=== PATIENT | female | born 1975 | race Caucasian/White ===

== ENCOUNTER 2025-01-04 13:37 | Inpatient (IN) | payer OTHER, SELFPAY ==
[2025-01-04] VITALS (12 sets, daily range): BP systolic 110–159; BP diastolic 69–86; PULSE 80–105; RESP 10–45; TEMP 36.2; O2SAT 99–100; BMI 27.8
--- NOTE | 2025-01-04 13:47 | DI.CT.S_ITS ---
PROCEDURE: CT HEAD/BRAIN WO CON INDICATIONS: splitting headache can't move left side TECHNIQUE: Noncontrast 4.5 mm thick angled axial sections acquired from the foramen magnum to the vertex, with coronal and sagittal reformats. For radiation dose reduction, the following was used: automated exposure control, adjustment of mA and/or kV according to patient size. COMPARISON: None. FINDINGS: Image quality: Diagnostic. CSF spaces: Basal cisterns are patent. No extra-axial fluid collections. Ventricles are normal in size and shape. Brain: Ill-defined hypodense area involving right parietal lobe with poor pérez-white differentiation concerning for acute to subacute infarction in this area. No midline shift. No intracranial masses or hemorrhage. Pérez-white matter interface is normal. Skull and face: Calvarium and visualized facial bones are intact, without suspicious lesions. Sinuses: Visualized sinuses and mastoids are clear. IMPRESSION: Finding is suggestive of acute to subacute infarction involving right parietal lobe. Clinical correlation and follow-up is recommended. No acute intracranial bleed, no midline shift or significant mass effect. Dictated by: Giancarlo Alarcon M.D. on 01/04/2025 at 14:01 Approved by: Giancarlo Alarcon M.D. on 01/04/2025 at 14:02
--- NOTE | 2025-01-04 13:47 | DI.CT.S_ITS ---
PROCEDURE: CT ANGIO HEAD AND NECK INDICATIONS: left side weakness TECHNIQUE: After the administration of intravenous contrast, 1 mm thick sections acquired from the aortic arch through the [place]. 3-dimensional dymirqc-jajxctnhs-nrtfjlhnpi (MIP) and/or volume rendering reformats were acquired of the central intracranial vasculature and neck separately. For radiation dose reduction, the following was used: automated exposure control, adjustment of mA and/or kV according to patient size. COMPARISON: [facility], CT, CT HEAD/BRAIN WO CON, 01/04/2025, 13:51. FINDINGS: Image quality: Diagnostic. BRAIN: See separately dictated CT brain report of 01/04/2025. HEAD CT ANGIOGRAPHY: Anterior circulation: Intracranial internal carotid arteries are normal in size and flow. The flow within the paired anterior cerebral arteries is normal and symmetric. The flow within the middle cerebral arteries is normal and symmetric. The anterior communicating artery is seen. No aneurysms are seen. Posterior circulation: Visualized portions of the vertebral arteries demonstrate normal caliber, and join to form a normal appearing basilar artery. Flow within the posterior cerebral arteries is normal and symmetric. No aneurysms are seen. NECK CT ANGIOGRAPHY: Carotid system: The great vessels demonstrate a conventional anatomy as they arise from the aortic arch. The origins of the common carotid arteries appear patent. The common carotid arteries demonstrate normal caliber and courses. The bifurcation regions are both widely patent. The internal carotid arteries demonstrate normal calibers and courses. Posterior circulation: The origins of the vertebral arteries both appear widely patent. The more superior extracranial portions of both vertebral arteries also demonstrate normal courses and calibers. They join to form a normal appearing basilar artery. Soft tissues: Visualized neck soft tissues demonstrate no suspicious abnormalities. Bones: No suspicious bony lesions. Visualized cervical spine appears normally aligned. IMPRESSION: No significant intracranial arterial abnormality is seen. No significant abnormality is seen within the arteries of the neck. Any quantitative measurements of stenosis were performed using NASCET criteria. Dictated by: Aida Patel M.D. on 01/04/2025 at 14:19 Approved by: Aida Patel M.D. on 01/04/2025 at 14:20
--- NOTE | 2025-01-04 13:49 | EKG_ITS ---
[facility] [address] [place] [address] Test Date: 2025-01-04 Pat Name: Yael Schaffer Department: [facility] Room: Gender: Female Behavior Specialist: FABIEN : 1975 Requested By: Order Number: [id number] Reading MD: Nabeel Ferreira Measurements Intervals [place] Rate: 80 P: 49 LA: 142 QRS: -18 QRSD: 82 T: 142 QT: 482 QTc: 555 Interpretive Statements Critical Test Result: Long QTc Normal sinus rhythm ST & T wave abnormality, consider anterolateral ischemia Prolonged QT Electronically Signed On 01-04-2025 17:42:28 PDT by Nabeel Ferreira
[2025-01-04 14:07] LABS: Add Manual Diff / Slide Review NO; Basophils Absolute Auto 100 /uL (0-100); Eosinophils Absolute Auto 200 /uL (0-450); Eosinophils Percent Auto 1.5 % (2-4); Hematocrit 33.7 % (36-46); Hemoglobin 10.6 g/dL (12.0-16.0); Lymphocytes Absolute Auto 1800 /uL (1100-4500); Lymphocytes Percent Auto 15.5 % (25-40); Mean Corpuscular HGB Conc 31.5 % (30-36); Mean Corpuscular Hemoglobin 20.3 PG (26-34); Mean Corpuscular Volume 64.6 fL (80-100); Monocytes Absolute Auto 700 /uL (0-900); Monocytes Percent Auto 6.1 % (3-14); Neutrophils Absolute Auto 8900 /uL (1500-7000); Neutrophils Percent Auto 75.9 % (50-75); Platelet Count 359 X10^3/uL (150-400); Red Blood Cell Count 5.22 X10^6/uL (4.0-5.2); White Blood Cell Count 11.7 X10^3/uL (4.5-11.0)
[2025-01-04 14:13] LABS: INR 1.1 (0.9-1.3); Prothrombin Time 12.2 SECONDS (9.4-12.5)
--- NOTE | 2025-01-04 14:14 | ED.NEUROSD ---
HPI - Neuro Symptoms/Deficit General Chief Complaint: Neuro Symptoms/Deficit Stated Complaint: Vomiting,no motor skills on left side ,head pain Time Seen by Provider: 01/04/25 13:47 Source: patient and family Mode of arrival: Wheelchair History of Present Illness HPI Narrative: Patient is a 49-year-old female presenting today as a code stroke. Last known well was last evening. Has been reports that she started having some difficulty with her left arm and left hand. Reporting that she can only move it if she really concentrate and looks at it. She was also having a pretty significant headache mostly on the right side. She has been vomiting for the last 9 days unable to keep anything in as well. No prior history of stroke. 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 Bueno at [facility] On Anticoagulants: No Related Data Allergies Allergy/AdvReac Type Severity Reaction Status Date / Time No Known Drug Allergies Allergy Verified 01/04/25 13:42 Review of Systems Hematologic/Lymphatic On Anticoagulants: No Patient History Social History Smoking Status: Current every day smoker Smoking Status: Current every day smoker tobacco type: vaping Exam Initial Vital Signs Initial Vital Signs: Vital Signs Blood Pressure 154/81 H 01/04/25 13:49 Pulse Oximetry 99 01/04/25 13:49 GENERAL: Alert 49-year-old female HEENT: Head atraumatic,EOMI, pupils reactive, face symmetric, dry mucous membranes CARDIOVASCULAR: Regular rate and rhythm without murmurs, rubs or gallops. RESPIRATORY: Breath sounds equal bilaterally, no wheezes rales or rhonchi. ABDOMEN: Soft, nontender. Normoactive bowel sounds all 4 quadrants. No guarding or rebound. EXTREMITIES: Normal range of motion, no clubbing or edema. Neurovascularly intact NEUROLOGICAL: Alert and oriented x4.Normal gait and speech. Cranial nerves II through XII grossly intact. Good jioywx-cw-kysd, good rgao-te-bmyn, strength equal bilaterally, no dysarthria or aphasia, sensation in tact to soft touch bilaterally, no visual changes, no facial droop SKIN: Warm, dry, no laceration, no petechiae, no rashes or lesions. Scores NIH Stroke Scale Level of Conciousness: Alert, keenly responsive Ask month/age: Answers both questions correctly. Open/close eyes, close hand: Performs both tasks correctly Best gaze horizontal: Normal Visual devi: Complete hemianopia Facial palsy: Normal symetrical movement Left arm drift: No drift for full 10 sec Right arm drift: No drift for full 10 sec Left leg drift: No drift for full 5 sec Right leg drift: No drift for full 5 sec Limb ataxia: Present in two limbs Sensory on face/arms/legs: Normal, no sensory loss Best language: No aphasia, normal Dysarthria: Normal Extinction or inattention: Visual, tactile, auditory, spatial or personal inattention to stimuli Total NIH Stroke scale score: 5 Course Orders Ordered: ED Orders 01/04/25 13:47 CT angio head and neck Stat CT head/brain wo con Stat 01/04/25 13:49 Urine Drug Screen, Rapid Stat EKG-12 Lead Stat 01/04/25 13:55 Acetaminophen Stat ETOH [Ethanol (ETOH)] Stat MAG [Magnesium] Stat Salicylate Stat 01/04/25 13:57 Complete Blood Count AUTO DIFF Stat Comprehensive Metabolic Panel Stat Lactate (Lactic Acid) Stat Lipase Stat PTT Partial Thromboplastin Zhao Stat Pathologist Review (for CBC) Stat Prothrombin Time INR Stat Troponin & CK Cardiac Panel Stat 01/04/25 14:29 Blood Culture Stat 01/04/25 15:29 Urine Drug Screen, Rapid Stat 01/04/25 16:55 Troponin & CK Cardiac Panel Stat Acetaminophen (Acetaminophen 325 Mg Tablet) 650 mg PO Q6H PRN PRN Reason: Fever/Mild Pain (1-3) Aspirin (Aspirin Ec 81 Mg Tablet) 81 mg PO DAILY ENZO Aspirin (Aspirin Ec 325 Mg Tablet) 325 mg PO NOW ONE Stop: 01/04/25 18:52 Atorvastatin Calcium (Atorvastatin 20 Mg Tablet) 80 mg PO BEDTIME ENZO Heparin Sodium (Porcine) (Heparin 5,000 Unit/Ml Vial) 5,000 unit SUBCUT BID ENZO Sodium Chloride (Normal Saline 0.9%) 1,000 mls @ 100 mls/hr IV CONT ENZO Metoprolol Tartrate (Metoprolol Ir 25 Mg Tablet) 12.5 mg PO BID ENZO Naloxone HCl (Naloxone 0.4 Mg/Ml Vial) 0.2 mg IV Q2MIN PRN PRN Reason: Opiate Reversal Discontinued Medications Aspirin (Aspirin 81 Mg Chew Tab) 324 mg PO NOW ONE Stop: 01/04/25 14:36 Last Admin: 01/04/25 14:53 Dose: 324 mg Documented By: MATHIEU POTASSIUM CHLORIDE IN WATER (Potassium Cl 10 Meq/100 Ml Karen) 10 meq in 100 mls @ 100 mls/hr IV Q1H ENZO Stop: 01/04/25 18:44 Last Admin: 01/04/25 18:10 Dose: 100 mls/hr Documented By: Infusion: 01/04/25 18:09 Dose: Infused Documented By: Admin: 01/04/25 16:57 Dose: 100 mls/hr Documented By: Infusion: 01/04/25 16:57 Dose: Infused Documented By: Admin: 01/04/25 16:01 Dose: 100 mls/hr Documented By: Infusion: 01/04/25 15:57 Dose: Infused Documented By: Admin: 01/04/25 14:57 Dose: 100 mls/hr Documented By: MATHIEU Acetaminophen (Ofirmev) 1,000 mg in 100 mls @ 400 mls/hr IV NOW ONE Stop: 01/04/25 15:21 Last Infusion: 01/04/25 15:53 Dose: Infused Documented By: Admin: 01/04/25 15:26 Dose: 400 mls/hr Documented By: CRISTIN Ondansetron HCl (Ondansetron 4 Mg/2 Ml Inj) 4 mg IV Q8HR PRN PRN Reason: Nausea And Vomiting Vital Signs Vital signs: Vital Signs - 8 hr 01/04/25 13:49 01/04/25 13:49 01/04/25 13:50 Pulse Rate 105 H Respiratory Rate 18 Blood Pressure 154/81 H 154/81 H Pulse Oximetry 99 99 Oxygen Delivery Method Room Air 01/04/25 14:03 01/04/25 14:09 01/04/25 14:30 Pulse Rate 82 83 Respiratory Rate 12 Blood Pressure 130/81 Pulse Oximetry 100 Oxygen Delivery Method 01/04/25 14:30 01/04/25 15:00 01/04/25 15:00 Pulse Rate 83 Respiratory Rate 37 H Blood Pressure 120/78 159/86 H Pulse Oximetry 100 Oxygen Delivery Method 01/04/25 15:30 01/04/25 15:31 01/04/25 15:31 Pulse Rate 80 86 Respiratory Rate 29 H 45 H Blood Pressure 124/69 Pulse Oximetry 100 100 Oxygen Delivery Method 01/04/25 16:00 01/04/25 16:00 01/04/25 16:30 Pulse Rate 84 Respiratory Rate 19 Blood Pressure 129/79 117/76 Pulse Oximetry 100 Oxygen Delivery Method 01/04/25 16:30 01/04/25 17:00 01/04/25 17:00 Pulse Rate 90 87 Respiratory Rate 16 10 L Blood Pressure 110/79 Pulse Oximetry 100 99 Oxygen Delivery Method Room Air MDM - Neuro Symptoms/Deficit Lab Data 01/04/25 13:57 01/04/25 13:57 Labs: Lab Results 01/04/25 01/04/25 01/04/25 Range/Units 13:55 13:57 16:55 WBC 11.7 H (4.5-11.0) X10^3/uL RBC 5.22 H (4.0-5.2) X10^6/uL Hgb 10.6 L (12.0-16.0) g/dL Hct 33.7 L (36-46) % MCV 64.6 L (80-100) fL MCH 20.3 L (26-34) PG MCHC 31.5 (30-36) % RDW 22.0 H (11.6-14.8) % Plt Count 359 (150-400) X10^3/uL Neut % (Auto) 75.9 H (50-75) % Lymph % (Auto) 15.5 L (25-40) % [place] % (Auto) 6.1 (3-14) % Eos % (Auto) 1.5 L (2-4) % Baso % (Auto) 1.0 (0-2) % Neut # (Auto) 8900 H (6891-0281) /uL Lymph # (Auto) 1800 (3663-0423) /uL [place] # (Auto) 700 (0-900) /uL Eos # (Auto) 200 (0-450) /uL Baso # (Auto) 100 (0-100) /uL RBC Morphology See below Anisocytosis 1+ H Schistocytes 1+ H PT 12.2 (9.4-12.5) SECONDS INR 1.1 (0.9-1.3) APTT 27 (25.1-36.5) SECONDS Sodium 139 (137-145) mmol/L Potassium 2.7 L* (3.4-5.1) mmol/L Chloride 104 (98-107) mmol/L Carbon Dioxide 22 (22-32) mmol/L BUN 14 (7-17) mg/dL Creatinine 0.67 (0.52-1.04) mg/dL Estimated GFR > 60 (>60) mL/min BUN/Creatinine Ratio 20.9 (6-22) Glucose 98 (70-100) mg/dL Hemoglobin A1c 5.3 (4.0-6.0) % Lactate 0.9 (0.7-2.1) mmol/L Calcium 8.8 (8.4-10.2) mg/dL Magnesium 1.8 (1.6-2.3) mg/dL Total Bilirubin 0.5 (0.2-1.3) mg/dL AST 30 (14-36) IU/L ALT 29 (<35) IU/L Alkaline Phosphatase 77 (38-126) U/L Total Creatine Kinase 24 L < 20 L (30-135) U/L Troponin I 0.128 H* 0.150 H* (0.01-0.034) ng/mL Total Protein 7.0 (6.3-8.2) g/dL Albumin 4.1 (3.5-5.0) g/dL Globulin 2.9 (1.7-4.1) g/dL Albumin/Globulin Ratio 1.4 (1.0-2.8) Triglycerides 111 (35-150) mg/dL Cholesterol 183 (140-199) mg/dL LDL Cholesterol, Calc 129 H (<100) mg/dL HDL Cholesterol 32 L (40-60) mg/dL Lipase 37 (23-300) U/L Salicylates < 1.0 (<20) mg/dL Acetaminophen < 10 (10-30) ug/mL Ethyl Alcohol < 10 ( - 10) mg/dL Point of Care Testing Glucose POC [address] scan - head: Radiologist's Impression: PROCEDURE: CT HEAD/BRAIN WO CON INDICATIONS: splitting headache can't move left side TECHNIQUE: Noncontrast 4.5 mm thick angled axial sections acquired from the foramen magnum to the vertex, with coronal and sagittal reformats. For radiation dose reduction, the following was used: automated exposure control, adjustment of mA and/or kV according to patient size. COMPARISON: None. FINDINGS: Image quality: Diagnostic. CSF spaces: Basal cisterns are patent. No extra-axial fluid collections. Ventricles are normal in size and shape. Brain: Ill-defined hypodense area involving right parietal lobe with poor pérez-white differentiation concerning for acute to subacute infarction in this area. No midline shift. No intracranial masses or hemorrhage. Pérez-white matter interface is normal. Skull and face: Calvarium and visualized facial bones are intact, without suspicious lesions. Sinuses: Visualized sinuses and mastoids are clear. IMPRESSION: Finding is suggestive of acute to subacute infarction involving right parietal lobe. Clinical correlation and follow-up is recommended. No acute intracranial bleed, no midline shift or significant mass effect. Dictated by: Giancarlo Alarcon M.D. on 01/04/2025 at 14:01 Approved by: Giancarlo Alarcon M.D. on 01/04/2025 at 14:02 CTA - brain/neck: Radiologist's Impression: PROCEDURE: CT ANGIO HEAD AND NECK INDICATIONS: left side weakness TECHNIQUE: After the administration of intravenous contrast, 1 mm thick sections acquired from the aortic arch through the [place]. 3-dimensional rvqaryf-wuyndzbkn-gbkwjhrmnh (MIP) and/or volume rendering reformats were acquired of the central intracranial vasculature and neck separately. For radiation dose reduction, the following was used: automated exposure control, adjustment of mA and/or kV according to patient size. COMPARISON: [facility], CT, CT HEAD/BRAIN WO CON, 01/04/2025, 13:51. FINDINGS: Image quality: Diagnostic. BRAIN: See separately dictated CT brain report of 01/04/2025. HEAD CT ANGIOGRAPHY: Anterior circulation: Intracranial internal carotid arteries are normal in size and flow. The flow within the paired anterior cerebral arteries is normal and symmetric. The flow within the middle cerebral arteries is normal and symmetric. The anterior communicating artery is seen. No aneurysms are seen. Posterior circulation: Visualized portions of the vertebral arteries demonstrate normal caliber, and join to form a normal appearing basilar artery. Flow within the posterior cerebral arteries is normal and symmetric. No aneurysms are seen. NECK CT ANGIOGRAPHY: Carotid system: The great vessels demonstrate a conventional anatomy as they arise from the aortic arch. The origins of the common carotid arteries appear patent. The common carotid arteries demonstrate normal caliber and courses. The bifurcation regions are both widely patent. The internal carotid arteries demonstrate normal calibers and courses. Posterior circulation: The origins of the vertebral arteries both appear widely patent. The more superior extracranial portions of both vertebral arteries also demonstrate normal courses and calibers. They join to form a normal appearing basilar artery. Soft tissues: Visualized neck soft tissues demonstrate no suspicious abnormalities. Bones: No suspicious bony lesions. Visualized cervical spine appears normally aligned. IMPRESSION: No significant intracranial arterial abnormality is seen. No significant abnormality is seen within the arteries of the neck. Any quantitative measurements of stenosis were performed using NASCET criteria. Dictated by: Aida Patel M.D. on 01/04/2025 at 14:19 ECG Data Attestation: I personally reviewed and interpreted this ECG as follows: Prior ECG tracings: not available for review Interpretation: Normal sinus rhythm rate 80 MN interval 142 QRS 82 QTC 555 significant T-wave inversion V2 V3 V4 V[address] depression in lateral inferior leads without ST elevation no priors to compare EKG 2. Persistent T-wave inversions no acute ischemia MDM Narrative Medical decision making narrative: MDM CC: Code stroke with nausea Complicating co-morbidities: Torsosades Data collected from: Medical records reviewed: Differential considered: CVA intracranial hemorrhage acute [place] Exam documented above, pertinent findings include: Awake alert 49-year-old female no facial droop she sometimes is moving her left arm seems to have some decreased sensation at least in her left arm definitely has ataxia left leg left arm Lab Test results independently reviewed as above. Pertinent findings: Potassium 2.7 Troponin 0 128 with repeat 0.150 WBC 0.7 hemoglobin 10.6 hematocrit 33, platelets 359 CMP hypokalemia no electrolyte abnormalities Independently reviewed EKG as above EKGs shows significant T-wave inversion in septal leads with some ST depression inferior lateral leads no elevation no priors to compare repeat EKGs similar Imaging studies independently reviewed: Head CT shows acute to subacute right parietal infarct CT angio no large vessel occlusion Consultations: [id number], cardiology [facility] has reviewed EKGs from today looking at EKGs from 2020 says that there is no significant change. Is aware of slightly elevated troponin of 0.1-8 repeat troponin pending at this time. If no significant change in repeat troponin would not worry too much about the EKGs especially if there is no chest pain Dr. Ferreira updated symptoms test results agrees to admission Treatments: K rider, aspirin Re-evaluations: Patient not vomiting is moving that left hand but definitely not at her baseline mental status Discussion: Patient is a 49-year-old female presenting today as code stroke. She was not within the window for TNK. Head CT suggest acute to subacute right parietal infarct which correlates with her left-sided findings. No evidence of large vessel occlusion. She also has a potassium of 2.7 consistent with vomiting. Abdomen is soft and nontender. EKGs show ischemic like changes but appears stable according to Cardiology. Troponin slightly elevated maybe secondary to vomiting. Potassium is replaced he was given IV fluids. Unclear why she has been vomiting for the last 9 days. Discharge Plan Departure Patient Disposition: Admitted As Inpatient Clinical Impression: Cerebrovascular accident, Acute hypokalemia, Elevated troponin Admit Date/Time: 01/04/25 18:06 Admit Provider: Nabeel Ferreira
[2025-01-04 14:16] LABS: PTT Partial Thromboplastin Tim 27 SECONDS (25.1-36.5)
[2025-01-04 14:17] LABS: Lactate (Lactic Acid) 0.9 mmol/L (0.7-2.1)
[2025-01-04 14:18] LABS: Alanine Aminotransferase 29 IU/L (<35); Albumin 4.1 g/dL (3.5-5.0); Albumin Globulin Ratio 1.4 (1.0-2.8); Alkaline Phosphatase 77 U/L (38-126); Aspartate Aminotransferase 30 IU/L (14-36); BUN Creatinine Ratio 20.9 (6-22); Bilirubin Total 0.5 mg/dL (0.2-1.3); Blood Urea Nitrogen 14 mg/dL (7-17); Calcium 8.8 mg/dL (8.4-10.2); Carbon Dioxide 22 mmol/L (22-32); Chloride 104 mmol/L (98-107); Creatine Kinase 24 U/L (30-135); Estimated Glomerular Filt Rate > 60 mL/min (>60); Globulin 2.9 g/dL (1.7-4.1); Glucose 98 mg/dL (70-100); HEMOLYSIS < 15 (0-50); Lipase 37 U/L (23-300); Sodium 139 mmol/L (137-145)
[2025-01-04 14:20] LABS: Potassium 2.7 mmol/L (3.4-5.1)
[2025-01-04 14:32] LABS: Troponin I 0.128 ng/mL (0.01-0.034)
[2025-01-04] MEDS: ASPIRIN 81 MG CHEW TAB 324 MG PO (14:53)
[2025-01-04] MEDS: POTASSIUM CHLORIDE IN WATER 10 MEQ/100 ML PIGGYBACK 100 MEQ IV ×4 (14:57→18:10)
[2025-01-04 15:21] LABS: Anisocytosis 1+; Schistocytes 1+
[2025-01-04] MEDS: ACETAMINOPHEN IV 1,000 MG/100 ML VIAL 400 MG IV (15:26)
[2025-01-04 15:41] LABS: Acetaminophen < 10 ug/mL (10-30); Ethanol (ETOH) < 10 mg/dL; Salicylate < 1.0 mg/dL (<20)
[2025-01-04 16:29] LABS: Magnesium 1.8 mg/dL (1.6-2.3)
[2025-01-04 17:09] LABS: Creatine Kinase < 20 U/L (30-135)
--- NOTE | 2025-01-04 18:01 | P.HP_ITS ---
History of Present Illness History of Present Illness Date Patient Seen: 01/04/25 Chief complaint: Vomiting,no motor skills on left side ,head pain Narrative: The patient was a 49-year-old female with a history bypass who also smokes on a daily basis. She was brought down from [place] where she lives by her . She had been sick for about 9 days with vomiting and malaise, they thought she would the flu. She developed a a headache today and stated she could not really move her left arm yesterday in the evening. She denies visual changes, or diplopia. She was able to walk today. In the ED she was called a code stroke upon arrival and a CT scan indicated a possible early stroke. She was no history of stroke. She also has an abnormal ECG with T-wave inversions from V1 to V6 and a long QT. Her potassium was 2.7 and her magnesium was 1.8. She has a history of torsade in the past per her . She does not have a history of coronary angiogram or known CAD. The emergency physician did review her ECG from [place] and apparently the T-wave inversions are similar. Her troponin was mildly elevated 0.15. She denies any chest pain. She denies any CP or dyspnea on exertion. Some nausea. [facility] Social History Smoking Status: Current every day smoker Meds Home Medications and Allergies Allergies Allergy/AdvReac Type Severity Reaction Status Date / Time No Known Drug Allergies Allergy Verified 01/04/25 13:42 Review of Systems Review of Systems Narrative: All else reviewed and otherwise unremarkable except as noted in the history and physical. Exam Vital Signs (past 8 hours): - 01/04/25 13:49 01/04/25 13:49 01/04/25 13:50 Pulse Rate 105 H Respiratory Rate 18 Blood Pressure 154/81 H 154/81 H Pulse Oximetry 99 99 Oxygen Delivery Method Room Air 01/04/25 14:03 01/04/25 14:09 01/04/25 14:30 Pulse Rate 82 83 Respiratory Rate 12 Blood Pressure 130/81 Pulse Oximetry 100 Oxygen Delivery Method 01/04/25 14:30 01/04/25 15:00 01/04/25 15:00 Pulse Rate 83 Respiratory Rate 37 H Blood Pressure 120/78 159/86 H Pulse Oximetry 100 Oxygen Delivery Method 01/04/25 15:30 01/04/25 15:31 01/04/25 15:31 Pulse Rate 80 86 Respiratory Rate 29 H 45 H Blood Pressure 124/69 Pulse Oximetry 100 100 Oxygen Delivery Method 01/04/25 16:00 01/04/25 16:00 01/04/25 16:30 Pulse Rate 84 Respiratory Rate 19 Blood Pressure 129/79 117/76 Pulse Oximetry 100 Oxygen Delivery Method 01/04/25 16:30 01/04/25 17:00 01/04/25 17:00 Pulse Rate 90 87 Respiratory Rate 16 10 L Blood Pressure 110/79 Pulse Oximetry 100 99 Oxygen Delivery Method Room Air Oxygen Delivery Method Room Air Narrative Exam Narrative: NAD, alert and oriented, fluent speech, calm. Somewhat somnolent. Normocephalic skull, EOMI, anicteric sclera, symmetric pupils. Oropharynx unremarkable, no droop. Neck supple, midline trachea, no adenopathy. Lungs clear, normal rate and effort. Heart regular, no murmur gallop or rub. Abdomen is soft, non distended and non tender. Extremities are free of edema. Skin is free of rash or lesions. Joints are not swollen or deformed. Judgment appears to be normal. NEURO: CN 2-12 intact. She has a hard time lifting both legs off the bed, she can raise both floppy arms off the bed. Objective ECG Impression: Normal sinus rhythm ST & T wave abnormality, consider anterolateral ischemia Prolonged QT Imaging Multiple studies:: Radiologist's impression: Head CT: Finding is suggestive of acute to subacute infarction involving right parietal lobe. Clinical correlation and follow-up is recommended. No acute intracranial bleed, no midline shift or significant mass effect. Head and neck CTA: No significant intracranial arterial abnormality is seen. No significant abnormality is seen within the arteries of the neck. Labs 01/04/25 13:57 01/04/25 13:57 Labs: Laboratory Results - last 24 hr 01/04/25 01/04/25 01/04/25 13:55 13:57 16:55 WBC 11.7 H RBC 5.22 H Hgb 10.6 L Hct 33.7 L MCV 64.6 L MCH 20.3 L MCHC 31.5 RDW 22.0 H Plt Count 359 Neut % (Auto) 75.9 H Lymph % (Auto) 15.5 L [place] % (Auto) 6.1 Eos % (Auto) 1.5 L Baso % (Auto) 1.0 Neut # (Auto) 8900 H Lymph # (Auto) 1800 [place] # (Auto) 700 Eos # (Auto) 200 Baso # (Auto) 100 RBC Morphology See below Anisocytosis 1+ H Schistocytes 1+ H PT 12.2 INR 1.1 APTT 27 Sodium 139 Potassium 2.7 L* Chloride 104 Carbon Dioxide 22 BUN 14 Creatinine 0.67 Estimated GFR > 60 BUN/Creatinine Ratio 20.9 Glucose 98 Lactate 0.9 Calcium 8.8 Magnesium 1.8 Total Bilirubin 0.5 AST 30 ALT 29 Alkaline Phosphatase 77 Total Creatine Kinase 24 L < 20 L Troponin I 0.128 H* 0.150 H* Total Protein 7.0 Albumin 4.1 Globulin 2.9 Albumin/Globulin Ratio 1.4 Lipase 37 Salicylates < 1.0 Acetaminophen < 10 Ethyl Alcohol < 10 Assessment & Plan Assessment & Plan narrative: 1. Possible CVA, present on admission and active. 2. Hypokalemia, present on admission and active. 3. Elevated troponin and ECG, present on admission and active. 4. Volume depletion and recent viral syndrome, present on admission and active. 5. Tobacco use, present on admission and active. 6. Previous gastric bypass, present on admission and active. PLAN: -IVF for rehydration -Potassium repletion -telemetry -repeat K and Mg later tonight -serial tropon -ASA and metoprolol -ECHO -MRI brain Anticipate 2 [place] stay, inpatient status. Full code LINDA: 01/06 Time-Based Coding :: 40 min spent with patient and on the chart (including review of chart, obtaining history, exam, reviewing outside data, placing orders, documenting exam and treatment plan, and counseling patient) on 01/04. Quality MIPS - Admit The patient?s Advance Care plan is not present because I confirmed today that the patient does not wish or was not able to name a surrogate decision maker or provide an Advance Care Plan.: Yes MIPS - Meds 'Current medications' to include all prescriptions, [id number] products, herbals, cannabis/cannabidiol products, and vitamin/mineral/dietary (nutritional) supplements. I have utilized all available resources to obtain, update, or review the patient?s current medications. [If Yes, STOP here]: Yes
--- NOTE | 2025-01-04 18:23 | DI.MRI.S_ITS ---
PROCEDURE: MR HEAD/BRAIN WO CON INDICATIONS: stroke TECHNIQUE: Noncontrast axial T1 spin echo, axial T2 fast spin echo, sagittal and axial FLAIR, coronal T2 fast spin echo, axial gradient echo, axial diffusion and ADC through the brain. COMPARISON: [facility], CT, CT ANGIO HEAD AND NECK, 01/04/2025, 13:51. FINDINGS: Image quality: Excellent. CSF Spaces: Basal cisterns are patent. No extra-axial fluid collections. Ventricles are normal in size and shape. Brain: Multifocal acute infarct of the right cerebral hemisphere, right MCA territory . No evidence of hemorrhagic conversion. This demonstrates restricted diffusion, dark signal on the ADC map and T2 intermediate signal on FLAIR. Skull and face: Calvarium has normal marrow signal. Orbits appear normal. Sinuses: Sinuses and mastoids are clear. IMPRESSION: Multifocal infarct of the right MCA territory. Multifocal nature may indicate embolic etiology. No notable plaque noted on the same day head CTA. Dictated by: Michael Guardado M.D. on 01/04/2025 at 19:23 Approved by: Michael Guardado M.D. on 01/04/2025 at 19:30
[2025-01-04 18:42] LABS: Cholesterol 183 mg/dL (140-199); HDL Cholesterol 32 mg/dL (40-60); LDL Cholesterol Calculated 129 mg/dL (<100); Triglycerides 111 mg/dL (35-150)
[2025-01-04 18:44] LABS: Hemoglobin A1C% w Est Avg Glu 5.3 % (4.0-6.0)
--- NOTE | 2025-01-04 18:48 | DI.ECHO.S_ITS ---
[facility]+ [facility] : : [address] : : [place] : : [id number] : : Phone: [phone] Echocardiogram Report + + :Name: CHLOE ESPINOZA Study Date: 01/05/2025 Height: 62 in : :Hospital ReadingLocation: Weight: 152 lb: : Gender: Female BSA: 1.7 m2 : :: 1975 Age: 49 yrs BP: 98/65 mmHg: :Reason For Study: ELEVATED TROPONIN : :Ordering Physician: GILLIAN, : :JUAN CARLOS Thompson Performed By: Sona Church : :Referring: JUAN CARLOS FRENCH : + + Interpretation Summary There appears to be two pedunculated mass measuring 2.5cm x1.8cm and 1.1cm x 1.0cm best measured on image 103 seen attached to the LV apex as well as apical septum. [place] is moving well. There is no aneurysm or akinesis. Hence unlikely thrombus. Other differential diagnosis: Cardiac tumor. Correlate clinically. Consider ALIDA as well as cardiac MRI The patient was in sinus bradycardia with heart rates between 56-64 bpm during the exam. The left ventricle is normal in size and wall thickness. The left ventricular ejection fraction is normal. The ejection fraction is estimated to be 55-60%. The right ventricle is normal in size and function. There is mild aortic regurgitation. There is mild tricuspid regurgitation. The IVC is of normal diameter and collapses greater than 50% with a sniff. This suggests a low right atrial pressure of 3 mm Hg. The ascending aorta is mildly enlarged. Notified Dr. French. Procedure: A two-dimensional transthoracic echocardiogram with color flow and Doppler was performed. The study quality was technically adequate. There is no prior echocardiogram noted for this patient. The patient was in sinus bradycardia with heart rates between 56-64 bpm during the exam. Left Ventricle: The left ventricle is normal in size and wall thickness. The ejection fraction is estimated to be 55-60%. The left ventricular ejection fraction is normal. There are no focal wall motion abnormalities. Right Ventricle: The right ventricle is normal in size and function. Atria: The left atrial size is normal. Right atrial size is normal. There is no Doppler evidence for an interatrial shunt. Mitral Valve: The mitral valve leaflets appear to open well. The mitral valve is normal. There is trace mitral regurgitation. Aortic Valve: The aortic valve is trileaflet. The aortic valve is slightly calcified. There is no aortic valve stenosis. There is mild aortic regurgitation. Tricuspid Valve: The tricuspid valve leaflets are thin and pliable. There is mild tricuspid regurgitation. Pulmonary artery pressures cannot be estimated because of the lack of a measurable TR jet velocity. Pulmonic Valve: The pulmonic valve leaflets are thin and pliable; valve motion is normal. There is a trace or physiologic amount of pulmonic regurgitation. Great Vessels: The aortic root is normal size. The ascending aorta is mildly enlarged. The IVC is of normal diameter and collapses greater than 50% with a sniff. This suggests a low right atrial pressure of 3 mm Hg. Pericardium/ Pleura There is no pericardial effusion. There is no pleural effusion. MMode/2D Measurements & Calculations LVIDd: 4.8 cm LVOT diam: 2.3 cm LVIDs: 3.0 cm Ao root diam: 3.3 cm FS: 38.3 % asc Aorta Diam: 3.6 cm EPSS: 0.59 cm Ao Arch Diam (Prox Trans): 3.0 cm IVSd: 1.1 cm LVPWd: 0.93 cm LV adamson. diameter/BSA (cm/m^2): 2.8 LV sys. diameter/BSA (cm/m^2): 1.7 LA A2 area: 17.8 cm2 RA long axis: 4.6 cm LA A4 area: 17.9 cm2 RA area: 12.9 cm2 LA length (vol): 4.8 cm RA vol: 30.6 ml LA vol: 56.0 ml RA : 18.0 ml/m2 LA vol index: 32.9 ml/m2 IVC diam: 1.9 cm RVD1 (basal): 3.3 cm RVD2 (mid): 2.6 cm TAPSE: 2.2 cm Doppler Measurements & Calculations Ao V2 max: 161.8 cm/sec LVOT Max Crescencio: 108.7 cm/sec Ao V2 mean: 112.3 cm/sec LV V1 max P.7 mmHg Ao max P.5 mmHg LV V1 VTI: 20.4 cm Ao mean P.6 mmHg KEY(I,D): 2.8 cm2 Ao V2 VTI: 28.8 cm KEY(V,D): 2.7 cm2 sev ratio: 0.71 KEY indexed to BSA (cm^2/m^2): 1.7 MV E max crescencio: 63.9 cm/sec PA V2 max: 88.8 cm/sec MV A max crescencio: 55.7 cm/sec PA V2 mean: 63.1 cm/sec MV E/A: 1.1 PA mean P.8 mmHg Med Peak E' Crescencio: 5.8 cm/sec PA pr(Accel): 22.5 mmHg E/E' med: 10.9 Lat Peak E' Crescencio: 8.1 cm/sec E/E' lat: 7.9 E/e' average: 9.4 MV dec time: 0.24 sec SV(LVOT): 82.1 ml Reading Physician:12:39 PM
[2025-01-04 19:37] LABS: Troponin I 0.145 ng/mL (0.01-0.034)
[2025-01-04] MEDS: SODIUM CHLORIDE 0.9% 1,000 ML 100 ML IV (19:56)
--- NOTE | 2025-01-04 20:01 | EKG_ITS ---
[address] [address] Test Date: 2025-01-04 Pat Name: Yael Schaffer Department: Room: 217 Gender: Female [employer]ing Machine Operator: FABIEN : 1975 Requested By: Order Number: [id number] Reading MD: Nabeel Ferreira Measurements Intervals [place] Rate: 88 P: 33 MO: 144 QRS: -27 QRSD: 78 T: 114 QT: 448 QTc: 542 Interpretive Statements Normal sinus rhythm T wave abnormality, consider anterior ischemia Prolonged QT Electronically Signed On 01-05-2025 14:37:49 PDT by Nabeel Ferreira
[2025-01-04] MEDS: ATORVASTATIN 20 MG TABLET 80 MG PO (21:07)
[2025-01-04] MEDS: METOPROLOL IR 25 MG TABLET 12.5 MG PO (21:07)
[2025-01-04] MEDS: HEPARIN 5,000 UNIT/ML VIAL 5000 UNIT SUBCUT (21:08)
[2025-01-04] MEDS: MORPHINE 2 MG/ML INJ IV (21:12)
[2025-01-04 23:21] LABS: BUN Creatinine Ratio 22.2 (6-22); Blood Urea Nitrogen 12 mg/dL (7-17); Calcium 8.3 mg/dL (8.4-10.2); Carbon Dioxide 20 mmol/L (22-32); Chloride 108 mmol/L (98-107); Estimated Glomerular Filt Rate > 60 mL/min (>60); Glucose 80 mg/dL (70-100); HEMOLYSIS < 15 (0-50); Magnesium 1.9 mg/dL (1.6-2.3); Sodium 137 mmol/L (137-145)
[2025-01-05] VITALS: BP 96/59; PULSE 67; RESP 12; TEMP 36.3; O2SAT 100
[2025-01-05] MEDS: ACETAMINOPHEN 325 MG TABLET 650 MG PO ×2 (00:16→17:10)
[2025-01-05] MEDS: POTASSIUM CHLORIDE IN WATER 10 MEQ/100 ML PIGGYBACK 100 MEQ IV ×3 (00:16→02:33)
[2025-01-05] MEDS: MAGNESIUM SULFATE 2 GM/50 ML PIGGYBACK IV (00:30)
[2025-01-05] MEDS: SODIUM CHLORIDE 0.9% 1,000 ML 100 ML IV ×3 (01:15→23:11)
[2025-01-05 04:00] VITALS: BP 98/56; PULSE 59; RESP 20; TEMP 36.1; O2SAT 99
[2025-01-05 05:52] LABS: Add Manual Diff / Slide Review NO; Basophils Absolute Auto 100 /uL (0-100); Eosinophils Absolute Auto 300 /uL (0-450); Eosinophils Percent Auto 3.2 % (2-4); Hematocrit 29.5 % (36-46); Hemoglobin 9.3 g/dL (12.0-16.0); Lymphocytes Absolute Auto 2400 /uL (1100-4500); Lymphocytes Percent Auto 29.7 % (25-40); Mean Corpuscular HGB Conc 31.6 % (30-36); Mean Corpuscular Hemoglobin 20.7 PG (26-34); Mean Corpuscular Volume 65.5 fL (80-100); Monocytes Absolute Auto 600 /uL (0-900); Monocytes Percent Auto 6.9 % (3-14); Neutrophils Absolute Auto 4800 /uL (1500-7000); Neutrophils Percent Auto 59.2 % (50-75); Platelet Count 246 X10^3/uL (150-400); Red Cell Distribution Width 22.1 % (11.6-14.8); White Blood Cell Count 8.1 X10^3/uL (4.5-11.0)
[2025-01-05 06:04] LABS: Blood Urea Nitrogen 12 mg/dL (7-17); Calcium 8.1 mg/dL (8.4-10.2); Carbon Dioxide 19 mmol/L (22-32); Chloride 109 mmol/L (98-107); Estimated Glomerular Filt Rate > 60 mL/min (>60); Glucose 81 mg/dL (70-100); HEMOLYSIS 29 (0-50); Sodium 137 mmol/L (137-145)
[2025-01-05 06:17] LABS: Anisocytosis 2+; Microcytosis 1+; Platelet Estimate Adequate on smear
[2025-01-05 06:18] LABS: Schistocytes 1+
[2025-01-05 06:33] LABS: Thyroid Stimulating Hormone 1.61 uIU/mL (0.47-4.68)
--- NOTE | 2025-01-05 07:07 | PM.PN.1 ---
Subjective Subjective Interval history: Summary: The patient was a 49-year-old female with a history bypass who also smokes on a daily basis. She was brought down from [place] where she lives by her . She had been sick for about 9 days with vomiting and malaise, they thought she would the flu. She developed a a headache today and stated she could not really move her left arm yesterday in the evening. She denies visual changes, or diplopia. She was able to walk today. In the ED she was called a code stroke upon arrival and a CT scan indicated a possible early stroke. She was no history of stroke. She also has an abnormal ECG with T-wave inversions from V1 to V6 and a long QT. Her potassium was 2.7 and her magnesium was 1.8. She has a history of torsade in the past per her . She does not have a history of coronary angiogram or known CAD. The emergency physician did review her ECG from [place] and apparently the T-wave inversions are similar. Her troponin was mildly elevated 0.15. She denies any chest pain. She denies any CP or dyspnea on exertion. Some nausea. S: Her headache is improved. She can lift the left arm up off the bed although it is quite weak. She can also lift her left leg up. MRI did confirm a right MCA distribution stroke which appears to be embolic. This likely is from the MCA itself. We will start on dual antiplatelet therapy today, this is held yesterday pending the MRI. Exam Vital Signs (past 8 hours): - 01/05/25 00:00 01/05/25 04:00 Temperature 97.4 F L 97.0 F L Pulse Rate 67 59 L Respiratory Rate 12 20 Blood Pressure 96/59 L 98/56 L Pulse Oximetry 100 99 Oxygen Flow Rate 0 0 Oxygen Delivery Method Room Air Oxygen Flow Rate 0 Narrative Exam Narrative: NAD, alert and oriented. Fluent speech. Lungs are clear, normal rate and effort. Heart is regular, no murmur gallop or rub. Abdomen is soft, non distended. Extremities are free of edema. Neuro: CN 2 through 12 intact, speech normal, alert and oriented to person, place, and time. Normal strength in the right arm and leg. She can lift the left arm up in the air but is quite weak and wobbly. She can also straight leg raise the left leg for about 4 seconds. Objective ECG Impression: Normal sinus rhythm ST & T wave abnormality, consider anterolateral ischemia Prolonged QT Imaging Multiple studies: : Radiologist's impression: Head CT: Finding is suggestive of acute to subacute infarction involving right parietal lobe. Clinical correlation and follow-up is recommended. No acute intracranial bleed, no midline shift or significant mass effect. Head and neck CTA: No significant intracranial arterial abnormality is seen. No significant abnormality is seen within the arteries of the neck. Brain MRI: Multifocal infarct of the right MCA territory. Multifocal nature may indicate embolic etiology. No notable plaque noted on the same day head CTA. Labs 01/05/25 05:03 01/05/25 05:03 Labs: Laboratory Results - last 24 hr 01/04/25 01/04/25 01/04/25 13:55 13:57 16:55 WBC 11.7 H RBC 5.22 H Hgb 10.6 L Hct 33.7 L MCV 64.6 L MCH 20.3 L MCHC 31.5 RDW 22.0 H Plt Count 359 Neut % (Auto) 75.9 H Lymph % (Auto) 15.5 L [place] % (Auto) 6.1 Eos % (Auto) 1.5 L Baso % (Auto) 1.0 Neut # (Auto) 8900 H Lymph # (Auto) 1800 [place] # (Auto) 700 Eos # (Auto) 200 Baso # (Auto) 100 Platelet Estimate RBC Morphology See below Anisocytosis 1+ H Microcytosis Schistocytes 1+ H PT 12.2 INR 1.1 APTT 27 Sodium 139 Potassium 2.7 L* Chloride 104 Carbon Dioxide 22 BUN 14 Creatinine 0.67 Estimated GFR > 60 BUN/Creatinine Ratio 20.9 Glucose 98 Hemoglobin A1c 5.3 Lactate 0.9 Calcium 8.8 Magnesium 1.8 Total Bilirubin 0.5 AST 30 ALT 29 Alkaline Phosphatase 77 Total Creatine Kinase 24 L < 20 L Troponin I 0.128 H* 0.150 H* Total Protein 7.0 Albumin 4.1 Globulin 2.9 Albumin/Globulin Ratio 1.4 Triglycerides 111 Cholesterol 183 LDL Cholesterol, Calc 129 H HDL Cholesterol 32 L Lipase 37 TSH Salicylates < 1.0 Acetaminophen < 10 Ethyl Alcohol < 10 01/04/25 01/04/25 01/05/25 18:44 22:55 05:03 WBC 8.1 RBC 4.50 Hgb 9.3 L Hct 29.5 L MCV 65.5 L MCH 20.7 L MCHC 31.6 RDW 22.1 H Plt Count 246 Neut % (Auto) 59.2 Lymph % (Auto) 29.7 [place] % (Auto) 6.9 Eos % (Auto) 3.2 Baso % (Auto) 1.0 Neut # (Auto) 4800 Lymph # (Auto) 2400 [place] # (Auto) 600 Eos # (Auto) 300 Baso # (Auto) 100 Platelet Estimate Adequate on smear RBC Morphology See below Anisocytosis 2+ H Microcytosis 1+ H Schistocytes 1+ H PT INR APTT Sodium 137 137 Potassium 3.0 L 4.0 Chloride 108 H 109 H Carbon Dioxide 20 L 19 L BUN 12 12 Creatinine 0.54 0.50 L Estimated GFR > 60 > 60 BUN/Creatinine Ratio 22.2 H 24.0 H Glucose 80 81 Hemoglobin A1c Lactate Calcium 8.3 L 8.1 L Magnesium 1.9 Total Bilirubin AST ALT Alkaline Phosphatase Total Creatine Kinase Troponin I 0.145 H* Total Protein Albumin Globulin Albumin/Globulin Ratio Triglycerides Cholesterol LDL Cholesterol, Calc HDL Cholesterol Lipase TSH 1.61 Salicylates Acetaminophen Ethyl Alcohol PENDING SALE TO [facility] Social History household members: spouse Smoking Status: Current every day smoker alcohol intake: never Assessment & Plan Assessment & Plan narrative: 1. Right MCA CVA, present on admission and active. 2. Hypokalemia, present on admission and active. 3. Elevated troponin and ECG, present on admission and active. 4. Volume depletion and recent viral syndrome, present on admission and active. 5. Tobacco use, present on admission and active. 6. Previous gastric bypass, present on admission and active. PLAN: -IVF for rehydration -Potassium repletion completed. -telemetry -repeat K and Mg later tonight -serial troponins stable. -ASA and metoprolol -ECHO pending. -MRI brain. -PT, OT pending. -Hold BP medications. DC 2-3 days SNF vs IP RH. Time-Based Coding :: [TOTAL MINUTES] spent with patient and on the chart (including review of chart, obtaining history, exam, reviewing outside data, placing orders, documenting exam and treatment plan, and counseling patient) on [DATE]. Quality VTE Deep Vein Thrombosis/Pulmonary Embolism Present on Admission: No
[2025-01-05] MEDS: MORPHINE 2 MG/ML INJ IV ×4 (07:52→22:13)
[2025-01-05 08:00] VITALS: BP 122/76; PULSE 71; RESP 14; TEMP 36.3; O2SAT 100
[2025-01-05] MEDS: HEPARIN 5,000 UNIT/ML VIAL 5000 UNIT SUBCUT ×2 (08:49→21:57)
[2025-01-05] MEDS: NICOTINE 14 PATCH 14 MG TOP (08:50)
--- NOTE | 2025-01-05 10:05 | PT.IIE ---
Physical Therapy Inpatient Evaluation/Re-Eval M1 PT/OT-IP Prior Functional Status Start: 01/05/25 13:04 Freq: NEEDED Status: Active Protocol: Document 01/05/25 10:05 AB (Rec: 01/05/25 13:24 AB [id number]) Medical Review Prior Functional Status Medical History Reviewed Yes Communication able to make needs known but requires increase time to respond or follow instructions Mobility and Gait pt stated that she was independent with all mobilities and ambulation without AD Social History Household Members spouse,children Living Arrangements House Number of Floors (Floors) Two Floors Number of Stairs To Enter/Railing? 1 step to enter Home Environment High Toilet,Tub/Shower Additional Social History Comment spouse and 2 sons works and other son goes to school and not available to assist pt M2 PT-IP Current Condition Start: 01/05/25 13:04 Freq: NEEDED Status: Active Protocol: Document 01/05/25 10:05 AB (Rec: 01/05/25 13:24 AB [id number]) Physical Therapy Current Condition Current Condition Evaluation Date 01/05/25 Treatment Diagnosis R CVA; difficulty in walking Onset Date 01/04/25 M3 PT-IP Subjective Start: 01/05/25 13:04 Freq: NEEDED Status: Active Protocol: Document 01/05/25 10:05 AB (Rec: 01/05/25 13:24 AB [id number]) Subjective Physical Therapy Visit Type Type Initial Evaluation Visit Start Time 10:05 Visit Stop Time 11:20 Number of ENGINEERING TEACHER Visits 0 Physical Therapy Visit Comments Patient Comments agreeable to do PT M4 PT-IP Mobility and Gait Start: 01/05/25 13:04 Freq: NEEDED Status: Active Protocol: Document 01/05/25 10:05 AB (Rec: 01/05/25 13:24 AB [id number]) PT-Bed Mobility Assessment Supine to Sit Supine to Sit Moderate Assistance Sit to Supine Sit to Supine Maximum Assistance,Total Assistance,2 Person Assistance PT-Transfer Assessment Sit to and From Stand Sit to and from Stand Maximum Assistance,2 Person Assistance,Use of Upper Extremities Equipment Transfer Assistive Device Gait Belt,Front Wheeled Walker Orthotic/Prosthetic Devices or Brace: No Transfers Transfer Destination Chair Transfer Technique Stand Pivot Transfer Ability Level of Assist Maximum Assistance,Total Assistance,2 Person Assistance ,Use of Upper Extremities Comments Mobility Comments pt supine in bed and spouse in room. pt has her eyes closes but able to answer questions but occasionally refer to spouse for answers. pt stated that she has R sided headache , cannot see on L eye and has eye sensitivity that she needs to close her eyes. closed window blinds for now. obtained PLOF and home set up. HELPER COORDINATOR came in and has to see pt first. checked back on pt after ~ 20 min. pt agreed to do PT. BP: 102/73. completed supine to sit mod A and cues. pt with decrease trunk control with posterior LOB and L lateral trunk LOB. pt unable to body position and needed cues to increase awareness. BP: 106/ 74. pt completed sit to stand max A x 2 and max cues. pt with heavy LE leaning on bed, unable to hold on to FWW with L hand, max A x 2 for standing balance. pt with slow responses to instructions. completed sit<>stand x 3 attempts. assisted pt to chair with max Ax2 to stand pivot to chair with PT in front of pt to assist and OT behind pt. completed sit <>stand from chair max A x 2 and max cues. PT in front of pt and pt holding on to PT for support. OT behind pt. pt able to stand ~ 10 sec, max A x 2 for standing balance and to prevent LLE from buckling. positioned pt on the chair. instrument and control technician came in and stated that she needs pt back in bed. max A x 2 to total A x 2 for stand pivot back to bed. max A x 2 to total A x 2 for sit to supine. positioned pt in bed total A x 2. call light and table place within reach. Gait Assessment Comments Gait Comments unable at this time PT-Balance Assessment Sitting Balance and Reactions Static Sitting Balance Ability Fair Dynamic Sitting Balance Ability Poor Standing Balance and Reactions Static Standing Balance Ability Poor Dynamic Standing Balance Ability Poor Device Used FWW M5 PT-IP Objective Assessments Start: 01/05/25 13:04 Freq: NEEDED Status: Active Protocol: Document 01/05/25 10:05 AB (Rec: 01/05/25 13:24 AB [id number]) Orientation Orientation/Cognition Level of Alertness Alert Orientation Name Safety Awareness Decreased Safety Awareness Memory Description Short Term Impaired Comments delayed responses to questions and instructions Gross Range of Motion Lower Extremity ROM Assessment Within Functional Limits Strength Lower Extremity Strength Assessment Left Impaired Hip 3-/5 Knee 3-/5 Sensation Assessment Sensation Gross Sensation Right LE Impaired,Left LE Impaired Sensation Description Numbness Comments Sensation Comments unable to perceive light touch on L body Muscle Tone Muscle Tone WNL No Muscle Tone Location Left Lower Extremity Type of Tone Hypotonicity M6 PT-IP Treatment Start: 01/05/25 13:04 Freq: NEEDED Status: Active Protocol: Document 01/05/25 10:05 AB (Rec: 01/05/25 13:24 AB [id number]) Physical Therapy Treatment Education Education Provided Safety M7 PT-IP Assessment and Plan Start: 01/05/25 13:04 Freq: NEEDED Status: Active Protocol: Document 01/05/25 10:05 AB (Rec: 01/05/25 13:24 AB [id number]) PT Summary Assessment and Plan Potential Rehabilitation Potential Fair Status of Condition at Evaluation Evolving Summary Impairments Pain,ROM,Strength,Balance, Coordination,Sensation,Tone, Cognition,Bed Mobility, Transfers,Gait,Activity Tolerance Assessment Summary pt is a 49 y/o F who is admitted for R CVA with L sided weakness. pt requiring max A x 2 to total A x 2 with bed mobility and transfers and unable to ambulate at this time. pt will benefit from acute rehab. Goals Bed Mobility Goal Minimal Assistance Transfer Goal Minimal Assistance,Front Wheeled Walker Gait Goal Minimal Assistance,Front Wheel Walker Gait Distance 25 Other Goals improve bed mobility, transfers, ambulation using fWW 50 ft SBA Days to Meet Goals 10 Frequency of Treatment Frequency Of Treatment Once a Day Treatment Plan Physical Therapy Treatment Plan Bed Mobility Training,Transfer Training,Gait Training, Therapeutic Exercise,Balance Retraining,Discharge Planning, Hot or Cold Pack,Neuromuscular Re-ed,Coordination Retraining ,Manual Therapy Precautions Other Precautions falls Recommendations To Nursing Amount of Assist Needed Mechanical Lift Discharge Recommendations PT Discharge Recommendations Acute Rehab Transportation Needs at Discharge Wheelchair/Cabulance - PT assist 2PA
[2025-01-05] MEDS: ASPIRIN EC 81 MG TABLET PO (10:22)
--- NOTE | 2025-01-05 10:29 | EKG_ITS ---
[facility] [address] [place] [address] Test Date: 2025-01-05 Pat Name: Yael Schaffer Department: [facility] Room: 217 Gender: Female Night Coordinator: : 1975 Requested By: Order Number: [id number] Reading MD: Nabeel Ferreira Measurements Intervals [place] Rate: 70 P: 41 LA: 148 QRS: -14 QRSD: 86 T: 174 QT: 496 QTc: 535 Interpretive Statements Normal sinus rhythm ST & T wave abnormality, consider inferior ischemia ST & T wave abnormality, consider anterolateral ischemia Prolonged QT Electronically Signed On 01-05-2025 14:38:05 PDT by Nabeel Ferreira
--- NOTE | 2025-01-05 10:43 | ST.IPIE ---
Visit Care Team Role Provider Type ED* *Temp Referring Provider Physician Specialty: Emergency Medicine Address: Phone: Fax: Email: Sydney Hudson, MSN, [facility] Family Provider Non-Staff Primary Care Provider Specialty: Medical Address: [address] [place] [address], [address] Email: Maru Vargas DO Emergency Provider Physician Specialty: Emergency Medicine Address: [address] [place] [address], [address] Email: [email or web address] Nabeel Ferreira MD Admit Provider Physician Attending Provider Specialty: Internal Medicine Address: [address] [place] [address], [address] Email: [email or web address] Initial Evaluation Report DISCHARGE SPECIALIST Clinical Swallow Evaluation Start: 01/05/25 10:31 Freq: Status: Active Protocol: Document 01/05/25 10:32 MA (Rec: 01/05/25 10:43 MA [id number]) Clinical Swallow Evaluation Session Time Visit Start Time 10:10 Visit Stop Time 10:32 Total Visit Minutes [address] Nabeel Ferreira Reason for Referral CVA Setting Assessment Location Acute Care Visit Type Note Type Initial evaluation Patient Information Identification Type Name,Wristband History The patient was a 49-year-old female with a history bypass who also smokes on a daily basis. She was brought down from [place] where she lives by her . She had been sick for about 9 days with vomiting and malaise, they thought she would the flu . She developed a a headache today and stated she could not really move her left arm yesterday in the evening. She denies visual changes, or diplopia. She was able to walk today. In the ED she was called a code stroke upon arrival and a CT scan indicated a possible early stroke. She was no history of stroke. She also has an abnormal ECG with T-wave inversions from V1 to V6 and a long QT. Her potassium was 2 .7 and her magnesium was 1.8. She has a history of torsade in the past per her . She does not have a history of coronary angiogram or known CAD. The emergency physician did review her ECG from [place] and apparently the T-wave inversions are similar. Her troponin was mildly elevated 0.15. She denies any chest pain. She denies any CP or dyspnea on exertion. Some nausea. Pt referred for ST evaluation d/t right MCA CVA in order to assess speech/swallow function . Subjective Observations Pt awake, alert, sitting upright in bed upon ST entering room. Pt present at bedside. Pt reports left sided weakness and left sided visual neglect, as well as a headache. She was compliant with evaluation. She reports not changes to speech /thinking since stroke and denies any swallow difficulties. She reports she wears full dentures but not when she is eating d/t them causing discomfort. Nursing reports she passed her swallow screen. Pt reports she consumes regular solids and thin liquids at home, however has difficulties with apples/ raw vegetables d/t lack of dentition. Reported by Patient/Caregiver Pain/Discomfort No Current Diet Regular (IDDSI 7) Baseline Feeding Method Independent in self-feeding Results Pt may benefit from food/ liquid placed on right side of tray table and cues provided to attend to items on the left side of her tray/table. The IDDSI Framework Protocol: IDDSI.1 Objective Assessment Mental Status Alert,Responsive,Cooperative Comment Oral motor exam revealed Pt edentulous, has full dentures but does not wear them while eating. Pt with slight lingual and labial weakness, ROM WFL. Food and Liquid Trials Position During Assessment Upright (90 degrees) Solid Trials Soft & Bite-sized (IDDSI 6), Regular (IDDSI 7) Administration Type Straw,Self-feeding Oral Impairment Within functional limits Oral Phase Comments Pt consumed 1/4 of a peanut butter and jelly sandwich and 1/2 of a rose cracker and about 4 oz of thin water via straw. For sandwich, Pt took adequate bite size, prolonged mastication however adequate bolus formation and control, minimal oral stasis. For rose cracker, Pt took adequate bite size, prolonged mastication with Pt reporting she likes to moisten harder textures in order to increase ease of chewing/swallowing. For thin water via straw, Pt exhibited adequate suction, good oral acceptance and containment. Pharyngeal Impairment Within functional limits Fatigue/Endurance Endurance WNL The IDDSI Framework Protocol: IDDSI.1 Findings Swallowing Function Within functional limits Severity of Swallow Impairment Within functional limits Prognosis Good Impact on Safety and Functioning No limitations Recommendations Instrumental Assessment No Swallowing Treatment No Recommended Solids Regular (IDDSI 7) Recommended Liquids Thin (IDDSI 0) Other Recommendations ST recommends regular solids and thin liquids with the below mentioned safe swallowing strategies in place . ST not warranted at this time, however ST recommends re referral if change in swallow function. Safety Precautions/Swallowing Remain upright (90 degrees) Recommendations during all oral intake,Upright position at least 30 minutes after meals,Small bites and sips when eating,Slow rate; swallow between bites, Alternate liquids and solids Medication Recommendations As Tolerated Discharge Recommendations Home Education Patient/Caregiver Education Described results of evaluation,Patient expressed understanding of evaluation, Family/caregivers expressed understanding of evaluation
[2025-01-05 12:00] VITALS: BP 106/68; PULSE 68; RESP 14; TEMP 36.2; O2SAT 100
--- NOTE | 2025-01-05 12:30 | OT.IP.EVAL ---
Occupational Therapy Inpatient Evaluation/Re-Eval M1 PT/OT-IP Prior Functional Status Start: 01/05/25 13:04 Freq: NEEDED Status: Active Protocol: Document 01/05/25 13:31 [facility] (Rec: 01/05/25 13:51 [facility] [id number]) Medical Review Prior Functional Status Medical History Reviewed Yes Communication able to make needs known but requires increase time to respond or follow instructions Mobility and Gait pt stated that she was independent with all mobilities and ambulation without AD Activities of Daily Living and IADL's Pt was completely independent with ADL needs. Prior Functional Level (Other details) Per pt's states pt has had long Covid and symptoms of having difficulty to focus and gets distracted and therefore he does the bills and meds. Pt states also has prism glasses as history having difficulty of being crossed eyes. Social History Household Members spouse,children Living Arrangements House Number of Floors (Floors) Two Floors Number of Stairs To Enter/Railing? 1 step to enter Home Environment High Toilet,Tub/Shower Additional Social History Comment spouse and 2 sons works and other son goes to school and not available to assist pt M2 OT-IP Current Condition Start: 01/05/25 13:06 Freq: Status: Active Protocol: Document 01/05/25 13:31 [facility] (Rec: 01/05/25 13:51 [facility] [id number]) Occupational Therapy Current Condition Current Condition Evaluation Date 01/05/25 Treatment Diagnosis CVA, difficulty with coordination Diagnosis Onset Date 01/04/23 M3 OT- IP Subjective and Pain Start: 01/05/25 13:06 Freq: Status: Active Protocol: Document 01/05/25 13:31 [facility] (Rec: 01/05/25 13:51 [facility] [id number]) OT- Subjective Occupational Therapy Visit Type Type Initial Evaluation Visit Start Time 10:53 Visit Stop Time 12:30 Notes Split time [id number] and 120 1230 Occupational Therapy Visit Comments Patient Comments Pt's in the room. Patient/Caregiver Goals To get better. OT Pain Assessment Pain When Pain Assessed At Rest Pain Present Pain Present Pain Reported Location right head Pain Behaviors Facial Grimacing,Holding Area M4 OT- IP ADL's Start: 01/05/25 13:06 Freq: Status: Active Protocol: Document 01/05/25 13:31 [facility] (Rec: 01/05/25 13:51 [facility] [id number]) OT HBB-Nzjl-Luoriti General Evaluation Self-Feeding Ability Moderate Assistance Areas Needing Assistance Cutting Food,Opening Containers Comments OT Self-Feeding Comments Assist for set-up and able to cut meatloaf with right hand but will need assist if having to use left hand to assist due to ataxia. OT ADL-Grooming Comments OT Grooming Comments Not performed. OT ADL-Oral Care Comments Oral Care Comments Not performed. OT ADL-Dressing General Eval Lower Body Dressing Ability Total Assistance Areas Needing Assistance Socks OT ADL-Toileting Comments OT Toileting Comments Pt not having to go at this time. OT ADL-Bathing Comments OT Bathing Comments Sponge bath more appropriate at this time. M5 OT- IP IADL's Start: 01/05/25 13:06 Freq: Status: Active Protocol: Document 01/05/25 13:31 [facility] (Rec: 01/05/25 13:51 [facility] [id number]) OT-Instrumental Activities of Daily Living Deficits IADL Deficits Identified Deficits Home Safety Awareness Awareness of Need for Assistance at Home Good Awareness Medication Management Medication Management Caregiver Administers Money Management Money Management Caregiver Provides Assistance Meal Preparation Meal Preparation Comments Pt will need assist. Solar Energy System Installer Solar Energy System Installer Comments Pt will need assist. M6 OT- IP Functional Cognition Start: 01/05/25 13:06 Freq: Status: Active Protocol: Document 01/05/25 13:31 [facility] (Rec: 01/05/25 13:51 [facility] [id number]) Cognitive Factors Limiting Selfcare Function Cognitive Ability Level of Alertness Alert Patient Orientation Name,Place,Situation Attention Span Ability Capable of Focused Attention, Capable of Sustained Attention Ability to Follow Commands Able to Follow One Step Commands with Increased Time, Able to Follow One Step Commands with Repetition Executive Function Ability Unable to Filter Distractions Cognitive Comments Cognitive Assessment Comments Pt has difficulty to focus, increased time to process and follow commands. Ataxia with left side of her body. Pt states has to look at her left side of her body in order to get it to move. Pt will benefit from SLUMS when able and appropriate. Per pt's feel pt now more distracted then before CVA. OT- Vision and Hearing OT- Hearing Assessment OT- Hearing Assessment WFL OT- Vision Assessment Visual Acuity Glasses All The Time Visual Attentiveness Impaired Occular Pursuits Impaired Horizontal Visual Convergence Impaired Visual Mayer Impaired Visual Spacial Neglect Left Vision Assessment Comments Pt vision impaired left eye - hemianopia M7 OT- IP Mobility and Balance Start: 01/05/25 13:06 Freq: Status: Active Protocol: Document 01/05/25 13:31 [facility] (Rec: 01/05/25 13:51 [facility] [id number]) OT- Bed Mobility Assessment Supine to Sit Supine to Sit Assist Moderate Assistance Sit to Supine Sit to Supine Assist Maximum Assistance,Total Assistance,2 Person Assistance OT-Transfer Assessment Sit to and From Stand Sit to and from Stand Maximum Assistance,2 Person Assistance Transfers Transfer Ability Maximum Assistance,2 Person Assistance Technique Transfer Destination Bed,Chair Devices Transfer Assistive Devices None,Gait Belt,Front Wheeled Walker Comments Mobility Comments MAX AX 2 to stand to the FWW and assist to hold the FWW in place. Pt needing assist for LUE management and also for LLE. Pt tends has posterior lean and also lateral lean to the left. Pt not able to stand for long and therefore stand pivot transfer completed by OT/PT. Lali lift more appropriate for pt to use at this time. OT- Balance Assessment Sitting Balance and Reactions Static Sitting Balance Ability Poor Dynamic Sitting Balance Ability Poor Standing Balance and Reactions Static Standing Balance Ability Poor Dynamic Standing Balance Ability Poor M8 OT- IP Objective Assessments Start: 01/05/25 13:06 Freq: Status: Active Protocol: Document 01/05/25 13:31 [facility] (Rec: 01/05/25 13:51 [facility] [id number]) OT Gross Range of Motion Upper Extremity Range of Motion ROM Impairments RUE WFL, LUE grossly WFL for AROM. OT Strength Comments Strength Comments RUE 4/5, LUE 4-/5 OT- Coordination Assessment Upper Extremity Finger to Nose Test Left UE Impaired Finger Tapping Test Left UE Impaired Comments Coordination Comments Pt has ataxic movements to LUE and neglect. OT Sensation Assessment Location Left Arm Light Touch Absent Deep Pressure Absent Proprioception (Position) Absent Tactile Localization Absent Edema Edema Absent M9 OT- IP Assessment and Plan Start: 01/05/25 13:06 Freq: Status: Active Protocol: Document 01/05/25 13:31 [facility] (Rec: 01/05/25 13:51 [facility] [id number]) OT Summary Assessment and Plan Potential Rehabilitation Potential Good Analytic Complexity at Evaluation High Summary OT Impairments Pain,Range of Motion,Strength, Balance,Coordination,Sensation ,Tone,Functional Cognition, Functional Mobility,Self- Feeding,Grooming,Dressing, Toileting,Bathing,Toilet Transfers,Shower Transfers, Activity Tolerance Progress Towards Goals Slow Progress due to Pain,Slow Progress due to Medical Issues,Slow Progress due to Activity Tolerance,Slow Progress due to Cognition Assessment Summary Pt HIgh complexity and main barriers are decreased functional use of left side of her body with decreased sensation and ataxia, steps, decreased midline and balance and needing extensive two person assist for needs at this time. Pt would benefit from acute rehab when medically stable. Goals Self-Feeding Goal Independent Grooming Goal Independent Dressing Goal Independent Toileting Goal Independent Bathing Goal Standby Assistance Toilet Transfer Goal Standby Assistance Shower Transfer Goal Minimal Assistance Days to Meet Goals 30 Frequency of Treatment Other frequency 5x/week Treatment Plan OT Treatment Plan ADL Training,Functional Cognition Training,Functional Mobility,Patient/Family Education,Discharge Planning Other Treatment Recommendations and Next Transfer to [facility] with MAXAX 2. Treatment Focus Discharge Recommendations OT Discharge Recommendations Acute Rehab Transportation Needs at Discharge Wheelchair/Cabulance
[2025-01-05] MEDS: CLOPIDOGREL 75 MG TABLET PO (13:05)
--- NOTE | 2025-01-05 14:44 | CM.DANOTE ---
DCP Assessment Note pt is a 49yo F admitted with confirmed stroke. PCP none, PCP just left clinic end Nov. working to transition now Payer [employer]ud[employer] RIM TECHNICIAN reviewed EMR. PT/OT rec acute inpt rehab. provider advocates for inpt acute rehab. RIM TECHNICIAN met with pt and spouse in room. confirm they lives together in [facility] with two adult sons, pt was previously indep but struggled with maintaining employment due to effects of long COVID on brain fog/ability to focus. preference to dc to Acute INPT rehab, agreeable to [facility]. RIM TECHNICIAN answered questions to best of ability. Spouse interested in getting FMLA after acute rehab if needed. encouraged him to follow up with new PCP at the clinic for FMLA. report spouse could transport to [facility] tomorrow if auth/acceptance in place. report working with [employer] in [place] for employment/housing/medical concerns, deny other community resources at this time from this RIM TECHNICIAN . Per Nisa at [facility], bed availability, will submit for ins auth, should hear back early tomorrow. RIM TECHNICIAN/Cristina faxed initial referral information. P: pending auth/acceptance, dc to [facility] tomorrow. transport with spouse. CM team will continue to follow as needed RAKESH Krishna Discharge Planning/Care Management CM Discharge Assessment Start: 01/05/25 14:42 Freq: Status: Active Protocol: Document 01/05/25 14:42 SL (Rec: 01/05/25 14:44 SL [id number]) Discharge Planning Assessment Assigned Sap Pi Developer RAKESH Francis DPOA/Assigned Designee Name elyse Rushing Contact Information [phone] Advance Directives? No History Provided By Patient Prior Living Arrangements House Household Members spouse,children Is patient alert and oriented? Yes Comment pending ins auth/official acceptance Discharge Plan Inpatient Rehab Unit Transportation Arrangement spouse in POV Referrals Initiated Other Additional Comment INPT acute rehab Whiteboard Updated in Patient Room with Yes name and ext. # of Sap Pi Developer Review Status In Process Please Provide Date Initial DC 01/05/25 Assessment Was Performed Next Review Type Continued Stay Review
[2025-01-05 16:00] VITALS: BP 93/51; PULSE 71; RESP 16; TEMP 36.1; O2SAT 99
[2025-01-05] MEDS: OXYCODONE IR 10 MG TABLET PO ×2 (17:10→23:10)
[2025-01-05 17:58] LABS: Troponin I 0.099 ng/mL (0.01-0.034)
--- NOTE | 2025-01-05 18:25 | PC.NURSE ---
Shift Note Patient A&O, VSS, RA. Patient with continued complaint of headache post PRN administration of IV morphine. MD made aware new order for PRN PO oxycodone,, patient medicated per DEC. Patient pain reassessed and able to rest comfortably, FLACC of 0. Bed in low position, call light within reach., at bedside.
[2025-01-05 20:00] VITALS: BP 113/67; PULSE 72; RESP 18; TEMP 35.9; O2SAT 99
[2025-01-05] MEDS: ATORVASTATIN 20 MG TABLET 80 MG PO (21:57)
[2025-01-05] MEDS: MIRTAZAPINE 15 MG TABLET 45 MG PO (21:57)
[2025-01-06] VITALS (7 sets, daily range): BP systolic 97–138; BP diastolic 54–87; PULSE 70–89; RESP 14–19; TEMP 35.8–36.5; O2SAT 95–100
[2025-01-06 05:19] LABS: Add Manual Diff / Slide Review NO; Basophils Absolute Auto 100 /uL (0-100); Basophils Percent Auto 0.9 % (0-2); Eosinophils Absolute Auto 200 /uL (0-450); Eosinophils Percent Auto 3.2 % (2-4); Hematocrit 28.5 % (36-46); Hemoglobin 8.8 g/dL (12.0-16.0); Lymphocytes Absolute Auto 2000 /uL (1100-4500); Lymphocytes Percent Auto 27.8 % (25-40); Mean Corpuscular HGB Conc 30.8 % (30-36); Mean Corpuscular Hemoglobin 20.3 PG (26-34); Mean Corpuscular Volume 65.8 fL (80-100); Monocytes Absolute Auto 500 /uL (0-900); Monocytes Percent Auto 7.1 % (3-14); Neutrophils Absolute Auto 4400 /uL (1500-7000); Platelet Count 260 X10^3/uL (150-400); Red Blood Cell Count 4.32 X10^6/uL (4.0-5.2); Red Cell Distribution Width 21.8 % (11.6-14.8); White Blood Cell Count 7.2 X10^3/uL (4.5-11.0)
[2025-01-06] MEDS: SODIUM CHLORIDE 0.9% 1,000 ML 100 ML IV (05:33)
[2025-01-06 05:43] LABS: Troponin I 0.078 ng/mL (0.01-0.034)
[2025-01-06 05:48] LABS: Anisocytosis 2+; Microcytosis 1+; Platelet Estimate Adequate on smear; Schistocytes 1+
[2025-01-06 05:52] LABS: BUN Creatinine Ratio 23.5 (6-22); Blood Urea Nitrogen 12 mg/dL (7-17); Calcium 8.3 mg/dL (8.4-10.2); Carbon Dioxide 21 mmol/L (22-32); Chloride 111 mmol/L (98-107); Estimated Glomerular Filt Rate > 60 mL/min (>60); Glucose 80 mg/dL (70-100); HEMOLYSIS < 15 (0-50); Potassium 3.9 mmol/L (3.4-5.1); Sodium 140 mmol/L (137-145)
[2025-01-06] MEDS: ASPIRIN EC 81 MG TABLET PO (08:35)
[2025-01-06] MEDS: CLOPIDOGREL 75 MG TABLET PO (08:35)
[2025-01-06] MEDS: NICOTINE 14 PATCH 14 MG TOP (08:36)
[2025-01-06] MEDS: HEPARIN 5,000 UNIT/ML VIAL 5000 UNIT SUBCUT ×2 (08:36→20:57)
[2025-01-06] MEDS: ACETAMINOPHEN 325 MG TABLET 650 MG PO ×2 (08:52→20:04)
[2025-01-06] MEDS: OXYCODONE IR 10 MG TABLET PO ×2 (08:52→20:04)
--- NOTE | 2025-01-06 10:43 | DIET.CONS ---
Dietary Consultation Note Admission Date: 01/04/2025 18:06 Assessment: 49 y F admitted for stroke. Dietitian screened for low MNA score. Met with pt and at bedside. Reports much improved appetite, eating 75-100% of meals. DFM reviewed for meal composition. Before admission reports vomiting and being unable to tolerate anything besides ice chips and saltines for 4 weeks. Lost 6 lb. Hx of bypass, typical dietary pattern consists of grazing on small snacks throughout day. Will graze for hour or 2 on the trays provided here. Nutrition focused physical exam performed with no findings. Assessed temples, clavicle region, buccal and orbital fat pads, interosseous. Ht: 157.48 cm Wt: 68.946 kg BMI: 27.8 UBW: 71.8 kg per pt 1 month ago (-4% weight loss within 1 month, non-severe) Last BM: () MNA: 10 Tyler Score: 19 Diet: 01/04/25 Dinner Heart Healthy Diet Diet Modifications: 01/05/25 Lunch Courtesy Tray (Peds, comfort care) Diet Modifications: Nutrition Percent Meal Consumed 100% 01/05/25 18:42 Percent Meal Consumed 75% 01/05/25 09:37 Labs: RBC 4.32 X10^6/uL (4.0-5.2) 01/06/25 04:40 Hgb 8.8 g/dL (12.0-16.0) L 01/06/25 04:40 Hct 28.5 % (36-46) L 01/06/25 04:40 Creatinine 0.51 mg/dL (0.52-1.04) L 01/06/25 04:40 Hemoglobin A1c 5.3 % (4.0-6.0) 01/04/25 13:57 Lactate 0.9 mmol/L (0.7-2.1) 01/04/25 13:57 Nutrition Diagnosis: Unintentional weight loss r/t inadequate oral intakes for 4 weeks aeb 4% weight loss in 1 month (non-severe) Interventions: Pt has improved appetite now, back to her normal PO intakes, no interventions needed Monitoring/Evaluations: PO intakes Electronically Signed by: Ivory Raza 01/06/25 10:43 Clinical Dietitian [address] [address]
--- NOTE | 2025-01-06 11:25 | PT.IPTN ---
Physical Therapy Treatment Note M2 PT-IP Current Condition Start: 01/05/25 13:04 Freq: NEEDED Status: Active Protocol: Document 01/05/25 10:05 AB (Rec: 01/05/25 13:24 AB [id number]) Physical Therapy Current Condition Current Condition Evaluation Date 01/05/25 Treatment Diagnosis R CVA; difficulty in walking Onset Date 01/04/25 M3 PT-IP Subjective Start: 01/05/25 13:04 Freq: NEEDED Status: Active Protocol: Document 01/06/25 11:25 AB (Rec: 01/06/25 12:48 AB [id number]) Subjective Physical Therapy Visit Type Type Treatment Note Visit Start Time 11:25 Visit Stop Time 12:10 Number of AUTOMOBILE RENTAL AGENT Visits 0 Physical Therapy Visit Comments Patient Comments ageeable to do PT M4 PT-IP Mobility and Gait Start: 01/05/25 13:04 Freq: NEEDED Status: Active Protocol: Document 01/06/25 11:25 AB (Rec: 01/06/25 12:48 AB [id number]) PT-Transfer Assessment Sit to and From Stand Sit to and from Stand Maximum Assistance,1 Person Assistance,2 Person Assistance ,Use of Upper Extremities Equipment Transfer Assistive Device Gait Belt,Front Wheeled Walker Orthotic/Prosthetic Devices or Brace: No Comments Mobility Comments pt sitting on chair and agreed to do PT. spouse in room with pt. BP: 101/70. completed sitting balance/ trunk control activities without back support. able to sit on chair without back support, lean forwards and get back to center. needs assist and cues to increase COG awareness. pt able to move LUE more today but continues to not feel L side of body. sit to stand from chair max A x 1-2 and max cues. static standing max A needing for balance. pt able to stand for a few seconds and cues to balance and L quads activation . (+) L knee buckling needing max A x 1-2 for balance. pt sat back on chair and rested. sit to stand again max A x 1- 2 and cues and pt able to ambulate ~ 5 ft using FWW max A x 2 and chair follow. unable to maintain L hand on FWW, needed assist for balance and stabilizing LLE. standing balance activities max A x 2 and cues: static standing and increase COG awareness, weight shifting. pt sat back on chair and positioned for lunch. educated pt on exercises/ activities that she can do on LUE. call light and table positioned next to pt. Left pt with spouse. Gait Assessment Gait Gait Assistance Required: Maximum Assistance,2 Person Assist Distance (Feet) 5 Able to Maintain Weight Bearing Status Yes During Gait Assistive Devices Assistive Device Gait Belt,Front Wheeled Walker Orthotic/Prosthetic Devices or Brace: No Gait Deviations General Gait Pattern Decreased Stride Length, Decreased Feet Clearance, Lateral Trunk Lean,Step-to Gait Factors Limiting Gait Function Factors Limiting Gait Function Abnormal Tonal Influences, Decreased Activity Tolerance, Decreased Sensation,Decreased Strength,Difficulty Following Directions,Incoordination,Poor Balance,Poor Safety Awareness M5 PT-IP Objective Assessments Start: 01/05/25 13:04 Freq: NEEDED Status: Active Protocol: Document 01/05/25 10:05 AB (Rec: 01/05/25 13:24 AB [id number]) Orientation Orientation/Cognition Level of Alertness Alert Orientation Name Safety Awareness Decreased Safety Awareness Memory Description Short Term Impaired Comments delayed responses to questions and instructions Gross Range of Motion Lower Extremity ROM Assessment Within Functional Limits Strength Lower Extremity Strength Assessment Left Impaired Hip 3-/5 Knee 3-/5 Sensation Assessment Sensation Gross Sensation Right LE Impaired,Left LE Impaired Sensation Description Numbness Comments Sensation Comments unable to perceive light touch on L body Muscle Tone Muscle Tone WNL No Muscle Tone Location Left Lower Extremity Type of Tone Hypotonicity M6 PT-IP Treatment Start: 01/05/25 13:04 Freq: NEEDED Status: Active Protocol: Document 01/06/25 11:25 AB (Rec: 01/06/25 12:48 AB [id number]) Physical Therapy Treatment Education Education Provided Safety M7 PT-IP Assessment and Plan Start: 01/05/25 13:04 Freq: NEEDED Status: Active Protocol: Document 01/06/25 11:25 AB (Rec: 01/06/25 12:48 AB [id number]) PT Summary Assessment and Plan Potential Rehabilitation Potential Fair Summary Impairments Pain,ROM,Strength,Balance, Coordination,Sensation,Tone, Cognition,Bed Mobility, Transfers,Gait,Activity Tolerance Progress Towards Goals Slow Progress - Other Assessment Summary pt progressing slowly with mobility and able to take steps today using FWW requiring max A x 2 and max cues and chair follow. pt will beneift fron acute rehab to improve overall strength and function. Goals Bed Mobility Goal Minimal Assistance Transfer Goal Minimal Assistance,Front Wheeled Walker Gait Goal Minimal Assistance,Front Wheel Walker Gait Distance 25 Other Goals improve bed mobility, transfers, ambulation using fWW 50 ft SBA Days to Meet Goals 10 Frequency of Treatment Frequency Of Treatment Once a Day Treatment Plan Physical Therapy Treatment Plan Bed Mobility Training,Transfer Training,Gait Training, Therapeutic Exercise,Balance Retraining,Discharge Planning, Hot or Cold Pack,Neuromuscular Re-ed,Coordination Retraining ,Manual Therapy Precautions Other Precautions falls Recommendations To Nursing Amount of Assist Needed 2 Person Assist Discharge Recommendations PT Discharge Recommendations Acute Rehab Transportation Needs at Discharge Wheelchair/Cabulance - PT assist 2PA
--- NOTE | 2025-01-06 12:04 | OT.IP.TRT ---
Occupational Therapy Treatment Note M2 OT-IP Current Condition Start: 01/05/25 13:06 Freq: Status: Active Protocol: Document 01/05/25 13:31 [facility] (Rec: 01/05/25 13:51 [facility] [id number]) Occupational Therapy Current Condition Current Condition Evaluation Date 01/05/25 Treatment Diagnosis CVA, difficulty with coordination Diagnosis Onset Date 01/04/23 M3 OT- IP Subjective and Pain Start: 01/05/25 13:06 Freq: Status: Active Protocol: Document 01/06/25 12:30 [facility] (Rec: 01/06/25 12:41 [facility] [id number]) OT- Subjective Occupational Therapy Visit Type Type Treatment Note Visit Start Time 11:31 Visit Stop Time 12:04 Occupational Therapy Visit Comments Patient Comments Pt working with PT as OT came into the room to assist with mobility needs and reassess pt 's BUE. Patient/Caregiver Goals To get better. OT Pain Assessment Pain When Pain Assessed At Rest Pain Present Pain Present Pain Reported Location right head Pain Behaviors Facial Grimacing M4 OT- IP ADL's Start: 01/05/25 13:06 Freq: Status: Active Protocol: Document 01/06/25 12:30 [facility] (Rec: 01/06/25 12:41 [facility] [id number]) OT [id number] Comments OT Self-Feeding Comments Not at meal time. Pt noted increased tone with left hand while trying to reach out and hold her drink. OT ADL-Grooming Comments OT Grooming Comments Not performed. OT ADL-Oral Care Comments Oral Care Comments Pt refused as states has no teeth. OT ADL-Dressing General Eval Lower Body Dressing Ability Total Assistance Areas Needing Assistance Socks OT ADL-Toileting Comments OT Toileting Comments Not performed. OT ADL-Bathing Comments OT Bathing Comments Pt will benefit from tub bench at home. M5 OT- IP IADL's Start: 01/05/25 13:06 Freq: Status: Active Protocol: Document 01/05/25 13:31 [facility] (Rec: 01/05/25 13:51 [facility] [id number]) OT-Instrumental Activities of Daily Living Deficits IADL Deficits Identified Deficits Home Safety Awareness Awareness of Need for Assistance at Home Good Awareness Medication Management Medication Management Caregiver Administers Money Management Money Management Caregiver Provides Assistance Meal Preparation Meal Preparation Comments Pt will need assist. Geography Professor Geography Professor Comments Pt will neeed assist. M6 OT- IP Functional Cognition Start: 01/05/25 13:06 Freq: Status: Active Protocol: Document 01/06/25 12:30 [facility] (Rec: 01/06/25 12:41 [facility] [id number]) Cognitive Factors Limiting Selfcare Function Cognitive Ability Level of Alertness Alert Patient Orientation Name,Place,Situation Attention Span Ability Capable of Focused Attention, Capable of Sustained Attention Ability to Follow Commands Able to Follow One Step Commands with Increased Time, Able to Follow One Step Commands with Repetition Cognitive Comments Cognitive Assessment Comments Pt still having to look at her left side of her body in order to initiate movements as pt still having no sensation on the left side BUE/BLE. OT- Vision and Hearing OT- Vision Assessment Visual Acuity Glasses All The Time Occular Pursuits WFL Vision Assessment Comments Pt vision impaired left eye - hemianopia Pt able to scan with her left eye to the left. M7 OT- IP Mobility and Balance Start: 01/05/25 13:06 Freq: Status: Active Protocol: Document 01/06/25 12:30 [facility] (Rec: 01/06/25 12:41 [facility] [id number]) OT-Transfer Assessment Sit to and From Stand Sit to and from Stand Maximum Assistance,1 Person Assistance Transfers Transfer Ability Maximum Assistance,2 Person Assistance Technique Transfer Destination Chair Devices Transfer Assistive Devices Gait Belt,Front Wheeled Walker Comments Mobility Comments MAX AX 1 to stand and able to use left hand better to push from the armrest of the recliner. MAX AX 2 with FWW , assist for weight shifting, vc for foot placement and trunk control. Pt able to take several step with bertha FWW with MAX AX 2 and chair follow of another. OT- Balance Assessment Sitting Balance and Reactions Static Sitting Balance Ability Good Dynamic Sitting Balance Ability Fair Standing Balance and Reactions Static Standing Balance Ability Poor Dynamic Standing Balance Ability Poor M8 OT- IP Objective Assessments Start: 01/05/25 13:06 Freq: Status: Active Protocol: Document 01/05/25 13:31 [facility] (Rec: 01/05/25 13:51 [facility] [id number]) OT Gross Range of Motion Upper Extremity Range of Motion ROM Impairments RUE WFL, LUE grossly WFL for AROM. OT Strength Comments Strength Comments RUE 4/5, LUE 4-/5 OT- Coordination Assessment Upper Extremity Finger to Nose Test Left UE Impaired Finger Tapping Test Left UE Impaired Comments Coordination Comments Pt has ataxic movements to LUE and neglect. OT Sensation Assessment Location Left Arm Light Touch Absent Deep Pressure Absent Proprioception (Position) Absent Tactile Localization Absent Edema Edema Absent M9 OT- IP Assessment and Plan Start: 01/05/25 13:06 Freq: Status: Active Protocol: Document 01/06/25 12:30 [facility] (Rec: 01/06/25 12:41 [facility] [id number]) OT Summary Assessment and Plan Potential Rehabilitation Potential Good Analytic Complexity at Evaluation High Summary OT Impairments Pain,Range of Motion,Strength, Balance,Coordination,Sensation ,Tone,Functional Cognition, Functional Mobility,Self- Feeding,Grooming,Dressing, Toileting,Bathing,Toilet Transfers,Shower Transfers, Activity Tolerance Progress Towards Goals Progressing Toward Goals Assessment Summary Pt noted increased tone with LUE and able to educated pt to recheck her LUE hand position often. Educated to keep her left hand open and relaxed on her lap or armrest of the recliner. pt still having no sensation of her Left side of her body for light touch or deep pressure at this time. Pt better awareness of midline today in sitting and standing. Pt is highly motivated to get better and doing better today. Pt to go to Acute rehab when medically stable. Goals Self-Feeding Goal Independent Grooming Goal Independent Dressing Goal Independent Toileting Goal Independent Bathing Goal Standby Assistance Toilet Transfer Goal Standby Assistance Shower Transfer Goal Minimal Assistance Days to Meet Goals 29 Frequency of Treatment Other frequency 5x/week Treatment Plan OT Treatment Plan ADL Training,Functional Cognition Training,Functional Mobility,Patient/Family Education,Discharge Planning Other Treatment Recommendations and Next Pt to be able to incorporate Treatment Focus her left hand for self feeding with ROBERT. Discharge Recommendations OT Discharge Recommendations Acute Rehab Transportation Needs at Discharge Private Vehicle,Wheelchair/ Cabulance
[2025-01-06] MEDS: methocarbamoL 500 MG TABLET PO (13:32)
--- NOTE | 2025-01-06 14:42 | CM.DPNOTE ---
Addendum entered by RAKESH Krishna 01/06/25 15:12: per Nisa at [facility], received ins authorization. can accept pt at any time tomorrow morning. RN report number [phone]. asked to be notified first thing in am tomorrow about time of dc to plan their intakes accordingly. COBBLER MCKAY updated provider/RN. Attempted to update pt, sleeping soundly. SL Original Note: DCP note COBBLER MCKAY reviewed EMR Per provider, cleared to dc to acute rehab once auth/placement secured. Henry Paula at [facility] can accept pt, waiting on ins auth. as of 1400 today, no auth. hopeful for ins auth by EOD to have scheduled dc to [facility] acute rehab tomorrow morning. COBBLER MCKAY updated pt/spouse throughout the day. Spouse confirms he can still transport pt tomorrow morning. pt preference remains to dc to [facility] pending auth. deny other CM/DCP questions at this time. P: dc to [facility] for INPT rehab once auth secured, anticipate early tomorrow morning. spouse to transport in POV. CM team will continue to follow as needed RAKESH Krishna
--- NOTE | 2025-01-06 16:55 | PM.PN.1 ---
Subjective Subjective Interval history: Summary: The patient was a 49-year-old female with a history bypass who also smokes on a daily basis. She was brought down from [place] where she lives by her . She had been sick for about 9 days with vomiting and malaise, they thought she would the flu. She developed a a headache today and stated she could not really move her left arm yesterday in the evening. She denies visual changes, or diplopia. She was able to walk today. In the ED she was called a code stroke upon arrival and a CT scan indicated a possible early stroke. She was no history of stroke. She also has an abnormal ECG with T-wave inversions from V1 to V6 and a long QT. Her potassium was 2.7 and her magnesium was 1.8. She has a history of torsade in the past per her . She does not have a history of coronary angiogram or known CAD. The emergency physician did review her ECG from [place] and apparently the T-wave inversions are similar. Her troponin was mildly elevated 0.15. She denies any chest pain. She denies any CP or dyspnea on exertion. Some nausea. S: Improving strength today in her L side. Still has her R sided headache. Still with numbness. Also discussed with patient her LV masses noted on TTE and need for outpatient evaluation with cardiology. Exam Vital Signs (past 8 hours): - 01/06/25 13:28 Temperature 97.0 F L Pulse Rate 88 Respiratory Rate 14 Blood Pressure 120/54 L Pulse Oximetry 97 Oxygen Flow Rate 0 Oxygen Delivery Method Room Air Oxygen Flow Rate 0 Narrative Exam Narrative: NAD, alert and oriented. Fluent speech. Lungs are clear, normal rate and effort. Heart is regular, no murmur gallop or rub. Abdomen is soft, non distended. Extremities are free of edema. Neuro: CN 2 through 12 intact, speech normal, alert and oriented to person, place, and time. Normal strength in the right arm and leg. She can lift the left arm up in the air, and has improving electric container tester strength. Left side is numb with minimal sensation to light touch compared to the R. Objective Labs 01/06/25 04:40 01/06/25 04:40 Labs: Laboratory Results - last 24 hr 01/04/25 01/05/25 01/06/25 13:57 17:15 04:40 WBC 7.2 RBC 4.32 Hgb 8.8 L Hct 28.5 L MCV 65.8 L MCH 20.3 L MCHC 30.8 RDW 21.8 H Plt Count 260 Neut % (Auto) 61.0 Lymph % (Auto) 27.8 [place] % (Auto) 7.1 Eos % (Auto) 3.2 Baso % (Auto) 0.9 Neut # (Auto) 4400 Lymph # (Auto) 2000 [place] # (Auto) 500 Eos # (Auto) 200 Baso # (Auto) 100 Platelet Estimate Adequate on smear RBC Morphology See below Anisocytosis 2+ H Microcytosis 1+ H Schistocytes 1+ H Smear Path Review Sodium 140 Potassium 3.9 Chloride 111 H Carbon Dioxide 21 L BUN 12 Creatinine 0.51 L Estimated GFR > 60 BUN/Creatinine Ratio 23.5 H Glucose 80 Calcium 8.3 L Troponin I 0.099 H 0.078 H PFSH Social History household members: spouse and children Smoking Status: Current every day smoker alcohol intake: never Assessment & Plan Assessment & Plan narrative: 1. Right MCA CVA, present on admission and active. 2. Hypokalemia, present on admission and active. 3. Elevated troponin and ECG, present on admission and active. 4. Volume depletion and recent viral syndrome, present on admission and active. 5. Tobacco use, present on admission and active. 6. Previous gastric bypass, present on admission and active. 7. left ventricular intracardiac mass, POA PLAN: -continue DAPT for 21 days, no recommendation for full anticoagulation as per coverstitch elastic attacher more likely intra-cardiac mass -outpatient follow up for further LV mass evaluation, including possible cardiac MRI, with outpatient cardiology. -continue statin therapy -continue PT/OT, recommended for acute rehab. -troponin downtrended, no need for further -plan for inpatient rehab likely tomorrow, authorized by insurance late in the afternoon. Discharge tomorrow to acute rehab is likely assuming stability. Time-Based Coding :: [TOTAL MINUTES] spent with patient and on the chart (including review of chart, obtaining history, exam, reviewing outside data, placing orders, documenting exam and treatment plan, and counseling patient) on [DATE]. Quality VTE Deep Vein Thrombosis/Pulmonary Embolism Present on Admission: No
[2025-01-06] MEDS: MIRTAZAPINE 15 MG TABLET 45 MG PO (20:57)
[2025-01-06] MEDS: ATORVASTATIN 20 MG TABLET 80 MG PO (20:57)
[2025-01-06] MEDS: SODIUM CHLORIDE 0.9% FLUSH 10 ML IV (20:58)
[2025-01-07 03:00] VITALS: BP 129/64; PULSE 86; RESP 15; TEMP 36.3; O2SAT 99
[2025-01-07 05:34] LABS: Add Manual Diff / Slide Review NO; Basophils Absolute Auto 0 /uL (0-100); Basophils Percent Auto 0.6 % (0-2); Eosinophils Absolute Auto 300 /uL (0-450); Eosinophils Percent Auto 3.5 % (2-4); Hematocrit 27.8 % (36-46); Hemoglobin 8.8 g/dL (12.0-16.0); Lymphocytes Absolute Auto 2100 /uL (1100-4500); Lymphocytes Percent Auto 27.9 % (25-40); Mean Corpuscular HGB Conc 31.8 % (30-36); Mean Corpuscular Hemoglobin 20.8 PG (26-34); Mean Corpuscular Volume 65.4 fL (80-100); Monocytes Absolute Auto 500 /uL (0-900); Monocytes Percent Auto 6.5 % (3-14); Neutrophils Absolute Auto 4600 /uL (1500-7000); Neutrophils Percent Auto 61.5 % (50-75); Platelet Count 247 X10^3/uL (150-400); Red Blood Cell Count 4.25 X10^6/uL (4.0-5.2); Red Cell Distribution Width 22.1 % (11.6-14.8); White Blood Cell Count 7.5 X10^3/uL (4.5-11.0)
[2025-01-07 06:21] LABS: Anisocytosis 2+; Microcytosis 1+; Platelet Estimate Adequate on smear; Schistocytes 1+
[2025-01-07 06:54] LABS: BUN Creatinine Ratio 24.5 (6-22); Blood Urea Nitrogen 13 mg/dL (7-17); Calcium 8.5 mg/dL (8.4-10.2); Carbon Dioxide 20 mmol/L (22-32); Chloride 113 mmol/L (98-107); Estimated Glomerular Filt Rate > 60 mL/min (>60); Glucose 78 mg/dL (70-100); HEMOLYSIS < 15 (0-50); Potassium 3.9 mmol/L (3.4-5.1); Sodium 139 mmol/L (137-145)
[2025-01-07 08:25] VITALS: BP 117/76; PULSE 83; RESP 14; TEMP 36.1; O2SAT 100
[2025-01-07] MEDS: HEPARIN 5,000 UNIT/ML VIAL 5000 UNIT SUBCUT (09:00)
[2025-01-07] MEDS: methocarbamoL 500 MG TABLET PO (09:00)
[2025-01-07] MEDS: ACETAMINOPHEN 325 MG TABLET 650 MG PO (09:00)
[2025-01-07] MEDS: ASPIRIN EC 81 MG TABLET PO (09:01)
[2025-01-07] MEDS: SODIUM CHLORIDE 0.9% FLUSH 10 ML IV (09:01)
[2025-01-07] MEDS: NICOTINE 14 PATCH 14 MG TOP (09:01)
[2025-01-07] MEDS: CLOPIDOGREL 75 MG TABLET PO (09:01)
[2025-01-07] MEDS: polyethylene glycoL 3350 17 GM POWD.PACK PO (09:29)
[2025-01-07] MEDS: DOCUSATE 100 MG CAPSULE 200 MG PO (09:30)
--- NOTE | 2025-01-07 09:41 | PM.DS.1 ---
History of Present Illness History of Present Illness Date Patient Seen: 01/07/25 Time Patient Seen: 09:41 Chief complaint: Vomiting,no motor skills on left side ,head pain Narrative: Per admitting provider, The patient was a 49-year-old female with a history bypass who also smokes on a daily basis. She was brought down from [place] where she lives by her . She had been sick for about 9 days with vomiting and malaise, they thought she would the flu. She developed a a headache today and stated she could not really move her left arm yesterday in the evening. She denies visual changes, or diplopia. She was able to walk today. In the ED she was called a code stroke upon arrival and a CT scan indicated a possible early stroke. She was no history of stroke. She also has an abnormal ECG with T-wave inversions from V1 to V6 and a long QT. Her potassium was 2.7 and her magnesium was 1.8. She has a history of torsade in the past per her . She does not have a history of coronary angiogram or known CAD. The emergency physician did review her ECG from [place] and apparently the T-wave inversions are similar. Her troponin was mildly elevated 0.15. She denies any chest pain. She denies any CP or dyspnea on exertion. Some nausea. Discharge Providers Provider Date of admission: 01/04/25 18:06 Discharge Date: 01/07/25 Primary care physician: GEOVANY Baldwin, ELEVATOR MECHANIC-BC Consults: 01/04/25 18:22 Consult to Discharge Planning Routine Comment: Consult to Occupational Therapy Evaluate & Treat Comment: Physician Instructions: Evaluate and treat Consult to Physical Therapy Evaluate & Treat Comment: Physician Instructions: Evaluate and Treat Consult to Speech Therapy Evaluate & Treat Comment: Physician Instructions: Evaluate and treat 01/04/25 19:00 Consult to [facility] [place] - Hydraulic Barker Operator Routine Comment: Hydraulic Barker Operator Consult needed for:: Other reason (Comment) Comment: has worried about housing and resources in the last year. Discharge provider: Ronnie Hunt DO Summary Hospital Course Discharge Diagnosis: 1. Right MCA CVA, present on admission and active. 2. Hypokalemia, present on admission and active. 3. Elevated troponin and ECG, present on admission and active. 4. Volume depletion and recent viral syndrome, present on admission and active. 5. Tobacco use, present on admission and active. 6. Previous gastric bypass, present on admission and active. 7. left ventricular intracardiac mass, POA Hospital Course: This is a 49-year-old female with PMH of prior gastric bypass who presented with left-sided weakness and numbness after a recent viral illness. MRI confirmed the presence of a right MCA stroke. Echocardiogram was performed and showed two left ventricular fixed masses. After discussion with embedded software architect they did not believe this to be a thrombus, and instead recommended continued DAPT instead of anticoagulation given her stroke. Further evaluation can be performed as an outpatient with cardiology referral after discharge (ideally shortly after discharge), and typically evaluation begins with a cardiac MRI per discussion with cardiology over the phone. She did have elevated troponins which downtrended fairly quickly. She had slowly improving left-sided weakness, but remains numb on her left side. She was started on a nicotine patch for assistance with smoking cessation. She was also started on statin therapy in addition to aspirin and Plavix. Plavix will continue for another 19 days after discharge to complete 21 day course. After therapy evaluations she was recommended for acute rehab, where the patient was transferred on January 07. Time Spent with Patient Time spent: Greater than 30 minutes Exam Vital Signs (past 8 hours): - 01/07/25 03:00 01/07/25 08:25 Temperature 97.3 F L 96.9 F L Pulse Rate 86 83 Respiratory Rate 15 14 Blood Pressure 129/64 117/76 Pulse Oximetry 99 100 Oxygen Flow Rate 0 Oxygen Delivery Method Room Air Oxygen Flow Rate 0 Narrative Exam Narrative: NAD, alert and oriented. Fluent speech. Lungs are clear, normal rate and effort. Heart is regular, no murmur gallop or rub. Abdomen is soft, non distended. Extremities are free of edema. Neuro: CN 2 through 12 intact, speech normal, alert and oriented to person, place, and time. Normal strength in the right arm and leg. She can lift the left arm up in the air, and has improving telephone repairer strength. LUE and LLE is numb with minimal sensation to light touch compared to the R. Objective Labs 01/07/25 04:32 01/07/25 04:32 Labs: Laboratory Results - last 24 hr 01/07/25 04:32 WBC 7.5 RBC 4.25 Hgb 8.8 L Hct 27.8 L MCV 65.4 L MCH 20.8 L MCHC 31.8 RDW 22.1 H Plt Count 247 Neut % (Auto) 61.5 Lymph % (Auto) 27.9 Luce % (Auto) 6.5 Eos % (Auto) 3.5 Baso % (Auto) 0.6 Neut # (Auto) 4600 Lymph # (Auto) 2100 Luce # (Auto) 500 Eos # (Auto) 300 Baso # (Auto) 0 Platelet Estimate Adequate on smear RBC Morphology See below Anisocytosis 2+ H Microcytosis 1+ H Schistocytes 1+ H Sodium 139 Potassium 3.9 Chloride 113 H Carbon Dioxide 20 L BUN 13 Creatinine 0.53 Estimated GFR > 60 BUN/Creatinine Ratio 24.5 H Glucose 78 Calcium 8.5 PFSH Social History household members: spouse and children Smoking Status: Current every day smoker alcohol intake: never Discharge Plan Discharge Plan Patient Disposition: Xfer Inpatient Rehab Other facility: [facility] [place] Acute rehab Provider Discharge Comment: You were admitted to the hospital with a stroke, confirmed on MRI. Your ultrasound of your heart showed 2 small masses which need further follow up with a embedded software architect after discharge. For now started on medications to try to prevent future strokes. Discharge orders & Medications Discharge Orders: Discharge (Order); Ordered 01/07/25 Ordered By: Ronnie Hunt Prescriptions: New oxycodone 10 mg Tablet 10 mg PO Q3HR PRN (Reason: Pain, Severe (7-10)) 7 Days Qty: 20 0RF acetaminophen 325 mg Tablet 650 mg PO Q6H PRN (Reason: Fever/Mild Pain (1-3)) Qty: 30 0RF aspirin 81 mg Tablet,Delayed Release (Dr/Ec) 81 mg PO DAILY Qty: 30 0RF nicotine 14 mg/24 hr Patch 24 Hour 14 mg topical DAILY Qty: 3 0RF atorvastatin 20 mg Tablet 80 mg PO BEDTIME Qty: 30 0RF clopidogrel 75 mg Tablet 75 mg PO DAILY Qty: 19 0RF methocarbamol 500 mg Tablet 500 mg PO QID PRN (Reason: Muscle Spasm) Qty: 30 0RF Continued mirtazapine [Remeron SolTab] 45 mg tablet,disintegrating 45 mg PO BEDTIME Follow up/Referrals: Sydney Hudson, MSN, ELEVATOR MECHANIC-BC [Primary Care Provider] - Discharge Health Status Multidrug resistant organism: No MDRO Precautions: Holt Diet/Activity/Treatments Diet: Diet as Tolerated and Regular Liquid consistency: Normal/Thin Food texture: Regular Activity: As tolerated, no restrictions Special Rehabilitation Services Reason for rehabilitation: Therapy following stroke Rehab type: Physical therapy and Occupational therapy Discharge Data Primary Care Provider: Sydney Hudson VTE Deep Vein Thrombosis/Pulmonary Embolism Present on Admission: No
--- NOTE | 2025-01-07 11:35 | PC.NURSE ---
Day shift: RN report called to JORY Hannon at [facility] in [place]. Patient and patient's spouse understand to go directly there without stopping anywhere. PIV and tele removed prior to discharge. All belongings with patient. JACE Bird escorted patient via wheelchair to exit. Paperwork (including hard script) given to patient's spouse. He stated he will give to [facility].
--- NOTE | 2025-01-07 13:33 | CM.DPNOTE ---
DC Note Discharge to [facility]; Nisa at [facility] accepts for admission today. Emailed Nisa the signed DC Summary when it was available. Patient and sp remain agreeable to plan, sp instructed to drive from directly to [facility], no stops. Sp and patient left at approx 1130. Bedside RN called report. Plan: Discharge to [facility] ([facility]) via sp to transport. [facility]
== END 2025-01-07 11:37 | DRG 45 ==
LOC: ED 13:58 → AC 18:06
PROVIDERS: Admitting Provider Hospitalist; Emergency Provider Emergency Medicine; Family Provider Registered Nurse; PCP Registered Nurse; Visit Provider Hospitalist
DX: I63.9 Cerebral infarction, unspecified (principal); I45.81 Long QT syndrome; E87.6 Hypokalemia; R79.89 Other specified abnormal findings of blood chemistry; E86.9 Volume depletion, unspecified; I51.89 Other ill-defined heart diseases; G81.94 Hemiplegia, unspecified affecting left nondominant side; R29.705 NIHSS score 5; R29.710 NIHSS score 10; Z98.84 Bariatric surgery status; Z72.0 Tobacco use; Z86.19 Personal history of other infectious and parasitic diseases
CPT/HCPCS: 36415; 70450; 70496; 70498; 70551; 80048; 80053; 80061; 80320; 80329; 82550; 82962; 83036; 83605; 83690; 83735; 84443; 84484; 85025; 85610; 85730; 87040; 92610; 93005; 93306; 96365; 96366; 96368; 97163; 97167; 97530; 97535; 99285; G0480; J0134; J1644; J2270; J3475; Q9967